=== PATIENT | female | born 1930 | race Caucasian/White ===

== ENCOUNTER 2018-09-02 10:51 | Inpatient (IN) | payer MEDICARE ==
[~2018-09-02] VITALS: Ht 152.4 cm; Wt 72.3 kg
[2018-09-02 13:00] VITALS: BP 92/54
--- NOTE | 2018-09-02 13:28 | Consultation-Hospitalist ---
PAGE RAM DO 09/02/18 1328: HPI History of Present Illness: HPI/Chief Complaint CC: Debility following left knee replacement HPI: This is an 88yoWF clinic patient of Dr Man in [place] who presents to the IR[facility] for rehab following an uncomplicated left total knee replacement. I was managing her in a consulting capacity since admitted at [facility] in [place] on Friday. Bowels are moving well and pain is controlled. Source: patient Exam Limitations: no limitations Date Seen 09/02/18 Attending Physician Victor Manuel Bravo MD PCP Alexx Man MD Referring Physician Date of Admission Sep 02, 2018 at 12:59 Home Medications & Allergies Home Medications Reviewed patient Home Medication Reconciliation performed by pharmacy medication reconciliations optics manufacturing technician and/or nursing. Patients Allergies have been reviewed. Allergies Allergies Coded Allergies Penicillins (Verified Allergy, Intermediate, 09/02/18) Past Hwtvmej-Ehawrv-Hhlmiw Hx Past Med/Social Hx: Reviewed Nursing Past Med/Soc Hx, Reviewed and Corrections made Patient Social History Marrital Status: Employed/Student: retired Alcohol Use: Occasionally Uses Alcohol Beverage of Choice: Wine Smoking Status: Never a Smoker Recent Foreign Travel: No Contact w/other who traveled: No Past Medical History Surgeries: Hysterectomy, Orthopedic, Pacemaker Cardiac: Atrial Fibrillation, High Cholesterol Hysterectomy Musculoskeletal: Arthritis Family History Hypertension Review of Systems Constitutional: malaise, weakness EENTM: no symptoms reported Respiratory: no symptoms reported Cardiovascular: no symptoms reported Gastrointestinal: no symptoms reported Genitourinary: no symptoms reported Musculoskeletal: joint pain Skin: no symptoms reported Psychiatric/Neurological: No Symptoms Reported All Other Systems Reviewed Negative Unless Noted: Yes Physical Exam Physical Exam Vital Signs Vital Signs - First Documented 09/02/18 09/02/18 13:00 15:00 Temp 98.0 Pulse 83 Resp 20 B/P (MAP) 92/54 (67) Pulse Ox 93 O2 Delivery Room Air Capillary Refill : Height, Weight, BMI Height: '" Weight: lbs. oz. kg; BMI Method: General Appearance: No Apparent Distress, WD/WN, Chronically ill Eyes: Bilateral Eye Normal Inspection, Bilateral Eye PERRL HEENT: PERRL/EOMI, Normal ENT Inspection, Pharynx Normal Neck: Full Range of Motion, Normal Inspection, Non Tender, Supple, Carotid Bruit Respiratory: Chest Non Tender, Lungs Clear, Normal Breath Sounds, No Accessory Muscle Use, No Respiratory Distress Cardiovascular: Regular Rate, Rhythm, No Edema, No Gallop, No JVD, No Murmur, Normal Peripheral Pulses Gastrointestinal: Normal Bowel Sounds, No Organomegaly, No Pulsatile Mass, Non Tender, Soft Back: Normal Inspection, No CVA Tenderness, No Vertebral Tenderness Extremity: Normal Capillary Refill, Normal Inspection, Normal Range of Motion ( decreased ROM left leg), Non Tender, No Calf Tenderness, No Pedal Edema Neurologic/Psychiatric: Alert, Oriented x3, No Motor/Sensory Deficits, Normal Mood/Affect Skin: Normal Color, Warm/Dry Lymphatic: No Adenopathy Results Results/Procedures Labs Patient resulted labs reviewed. Assessment/Plan Assessment and Plan Assess & Plan/Chief Complaint Assessment: s/p left total knee replacement POD # 2 Debility following surgery AF OP Hypothyroidism Plan: Home meds Monitor BP Diagnosis/Problems Diagnosis/Problems (1) Total knee replacement status Status: Acute Qualifiers: Laterality: left Qualified Codes: Z96.652 - Presence of left artificial knee joint (2) Debility Status: Acute (3) Hypothyroidism Status: Chronic Qualifiers: Hypothyroidism type: acquired Qualified Codes: E03.9 - Hypothyroidism, unspecified (4) Hypertension Status: Chronic Qualifiers: Hypertension type: essential hypertension Qualified Codes: I10 - Essential (primary) hypertension (5) Osteoporosis Status: Chronic Qualifiers: Osteoporosis type: unspecified Presence of current pathological fracture: unspecified Qualified Codes: M81.0 - Age-related osteoporosis without current pathological fracture OSORIO AMOR MED STUDENT 09/02/18 1547: HPI History of Present Illness: HPI/Chief Complaint CC: Rehab for total knee replacement HPI: The patient is an 88 y/o female show underwent a left total knee replacement on Friday. Surgery was performed by Dr. Funk at [facility]. She is being admitted to [facility] for inpatient rehabilitation. She states that she had been suffering from osteoarthritis of the knees for many years. She has previously had her right knee replaced and the left knee has been hurting for the past 5-6 years. She is currently very sore but her pain is under control. She reports no other symptoms and is eager to proceed with rehabilitation. Source: patient Home Medications & Allergies Home Medications Active Scripts Medications Dose Route/Sig Max Daily Dose Days Date Category Hydrocodone-Acetamin 7.5-325 (Hydrocodone/Acetaminophen) 1 Each Tablet 1-2 Tab PO Q4H PRN 09/02/18 Reported Sertraline HCl 100 Mg Tablet 100 Mg PO HS 09/02/18 Reported Aspirin EC (Aspirin) 81 Mg Tablet.dr 81 Mg PO DAILY PRN 09/02/18 Reported Amlodipine Besylate 10 Mg Tablet 10 Mg PO HS 09/02/18 Reported Vitamin D3 (Cholecalciferol (Vitamin D3)) 1,000 Unit Capsule 1,000 Unit PO DAILY 09/02/18 Reported Vitamin C (Ascorbate Calcium) 500 Mg Tablet 500 Mg PO DAILY 09/02/18 Reported Triamterene-Hctz 37.5-25 mg Cp (Triamterene/Hydrochlorothiazid) 1 Each Capsule 1 Cap PO DAILY 09/02/18 Reported Acid Assistant Store Manager Sales (FAMOTIDINE) (Famotidine) 20 Mg Tablet 20 Mg PO DAILY PRN 09/02/18 Reported Levothyroxine Sodium 50 Mcg Tablet 50 Mcg PO DAILY 09/02/18 Reported Gabapentin 100 Mg Capsule 200 Mg PO BID 09/02/18 Reported Fosamax (Alendronate Sodium) 70 Mg Tablet 70 Mg PO WEEK 09/02/18 Reported Allergies Allergies: Penicillin Past Biailsq-Hfczad-Ajnuef Hx Patient Social History Marrital Status: Employed/Student: retired Alcohol Use: Occasionally Uses Alcohol Beverage of Choice: Wine Recreational Drug Use: No Smoking Status: Never a Smoker Past Medical History Surgeries: Hysterectomy, Orthopedic, Pacemaker Cardiac: Atrial Fibrillation, High Cholesterol Hysterectomy Family History Stroke Review of Systems Constitutional: no symptoms reported EENTM: no symptoms reported Respiratory: no symptoms reported Cardiovascular: no symptoms reported Gastrointestinal: no symptoms reported Genitourinary: no symptoms reported Skin: no symptoms reported Physical Exam Physical Exam General Appearance: No Apparent Distress, WD/WN Neck: Full Range of Motion, Normal Inspection, Non Tender, Supple Respiratory: Chest Non Tender, Lungs Clear, Normal Breath Sounds, No Accessory Muscle Use, No Respiratory Distress Cardiovascular: Regular Rate, Rhythm, No Edema, No Gallop, No JVD, No Murmur Neurologic/Psychiatric: Alert, Oriented x3, No Motor/Sensory Deficits, Normal Mood/Affect Skin: Normal Color, Warm/Dry Lymphatic: No Adenopathy Assessment/Plan Assessment and Plan Assess & Plan/Chief Complaint Assessment: 1) Left total knee replacement Plan: 1) inpatient rehabilitation PAGE RAM DO Sep 02, 2018 13:28 OSORIO AMOR MED STUDENT Sep 02, 2018 15:47
--- NOTE | 2018-09-02 13:37 | Occupational Therapy Eval ---
OT Evaluation-General/PLF Medical Diagnosis Admission Date Sep 02, 2018 at 12:59 Medical Diagnosis: L TKA Onset Date: Aug 31, 2018 Therapy Diagnosis Therapy Diagnosis: decr self care, decr funct mob, decr act bernice, weakness Precautions Precautions/Isolations: Standard Precautions Weight Bear Status Weight Bearing Restriction: Weight Bearing/Tolerated Referral Physician: Lawrence Referral Reason: Evaluation/Treatment Medical History Pertinent Medical History: Arthritis, Neuropathy (Pt reported in feet), OA Additional Medical History R TKA March 2018. Anxiety, depression. Back problems. Claustrophobia. Glaucoma. Gout. Migraine headaches. Pacemaker. Thyroid disorder. Decreased hearing. Sleep disturbances. Hx a fib, bradycardia Current History Elective L TKA Reviewed History: Yes Social History Home: Single Level Current Living Status: Alone Entry Into Home: Stairs With Railing Steps Into Home: 4 ADL-Prior Level of Function Functional [place] Measure 0=Not Assessed/NA 4=Minimal Assistance 1=Total Assistance 5=Supervision or Setup 2=Maximal Assistance 6=Modified [place] 3=Moderate Assistance 7=Complete [place] ADL PLOF Comments Pt reported that she was previously able to manage all of her basic self care needs. She has someone to help her clean her house but is otherwise able to manage cooking, laundry, medications, bills. She still drives and reported shopping wears her out. She is retired Self Care DME/Equipment: Bath Chair, Grab Bars, Shower, Tall Toilet OT Current Status Subjective Pt seen in room, up in recliner, agreeable to OT. Pain reported 6/10 in her knee and she told nursing she had pain meds just before she left the hospital. Appearance Alert, cooperative Mental Status/Objective Patient Orientation: Person, Place, Time, Situation Current Glasses/Contacts: Yes Hearing Aids: No Dentures/Partials: No Hand Dominance: Right Upper Extremity ROM Grossly WFL bilat. Pt reported sometimes arthritis limits her shoulder movement. Upper Extremity Coordination No problems observed Upper Extremity Sensation No problems per pt report Upper Extremity Strength Grossly 4/5 bilat ADL-Treatment ADL-Current Pt reported that she had a shower at the hospital before she left and changed clothing. She had a late lunch and didn't need to toilet at this time. Plan ADLs in the morning. Pt educ to push up from chair with both arms. Transferred CGA and walked CGA, FWW to [facility] for group. Functional [place] Measure 0=Not Assessed/NA 4=Minimal Assistance 1=Total Assistance 5=Supervision or Setup 2=Maximal Assistance 6=Modified [place] 3=Moderate Assistance 7=Complete IndependenceIRFPAI Quality Coding Scale 6 Independent with activity with or without an assistive device 5 Patient requires set up or clean up by helper. Patient completes activity by themselves 4 Supervision or touching assist (CGA). [place] provide cues , steadying assist 3 The helper provides less than half the effort to complete the activity 2 The helper provides more than half the effort to complete the activity 1 Dependent. The helper does all the effort to complete an activity 7 Patient refused to complete or attempt activity 9 The patient did not perform the activity before the current illness or injury 88 Not attempted due to Medical conditions or safety concerns Education OT Patient Education: Purpose of tx/functional activities, Rehab process, Transfer techniques Teaching Recipient: Patient, Family Teaching Methods: Discussion Response to Teaching: Verbalize Understanding, Reinforcement Needed OT Short Term Goals Short Term Goals Time Frame: Sep 09, 2018 Grooming(FIM): 5 Bathing(FIM): 5 Upper Body Dressing(FIM): 5 Lower Body Dressing(FIM): 5 Toileting(FIM): 5 Toilet/Commode Transfer(FIM): 5 Shower Transfer(FIM): 5 Additional Short Term Goals: 1-Demonstrate ADL Tasks, 2-Verbalize Understanding , 3-ImproveStrength/Mandi 1=Demonstrate adherence to instructed precautions during ADL tasks. 2=Patient will verbalize/demonstrate understanding of assistive devices/ modifications for ADL. 3=Patient will improve strength/tolerance for activity to enable patient to perform ADL's. OT Substation Superintendent Goals Senior Living Goals Time Frame: Sep 18, 2018 Eating (FIM): 7 Eating (QC): 7 Groomin Oral Hygiene (QC): 6 Bathing(FIM): 6 Shower/Bathe Self (QC): 6 Upper Body Dressing(FIM): 6 Upper Body Dressing (QC): 6 Lower Body Dressing(FIM): 6 Lower Body Dressing (QC): 6 On/Off Footwear (QC): 6 Toileting(FIM): 6 Toileting Hygiene (QC): 6 Toilet/Commode Transfer(FIM): 6 Toilet/Commode Transfer (QC): 6 Shower Transfer(FIM): 6 Additional Goals: 1-Demonstrate ADL Tasks, 2-Verbalize Understanding, 3- ImproveStrength/Mandi 1=Demonstrate adherence to instructed precautions during ADL tasks. 2=Patient will verbalize/demonstrate understanding of assistive devices/ modifications for ADL. 3=Patient will improve strength/tolerance for activity to enable patient to perform ADL's. OT Education/Plan Problem List/Assessment Assessment: Decreased Activ Tolerance, Decreased UE Strength, Dependent Transfers, Impaired Self-Care Skills Pt would benefit from skilled OT to increase her independence to allow her to safely return home to live alone after L TKA Discharge Recommendations Plan/Recommendations: Continue POC Treatment Plan/Plan of Care Treatment,Training & Education: Yes Patient would benefit from OT for education, treatment and training to promote independence in ADL's, mobility, safety and/or upper extremity function for ADL' s. Plan of Care: ADL Retraining, Functional Mobility, Group Exercise/Act as Ind ( education, exercise, functional mobility, activity tolerance, socialization), UE Neuromus Re-Ed/Coord Treatment Duration: Sep 18, 2018 Frequency: At least 5 of 7 days/Wk (IRF) Estimated Hrs Per Day: 1.5 hours per day Agreement: Yes Rehab Potential: Good Time/GCodes Start Time: 13:10 Stop Time: 13:30 Total Time Billed (hr/min): 20 Billed Treatment Time visit, 20 minutes evaluation moderate intensity TREVON TRUJILLO OT Sep 02, 2018 13:37
--- NOTE | 2018-09-02 14:15 | Physical Therapy Evaluation ---
PT Evaluation-General Medical Diagnosis Admission Date Sep 02, 2018 at 12:59 Medical Diagnosis: L TKA Onset Date: Aug 31, 2018 Therapy Diagnosis Therapy Diagnosis: weakness; abn gait Precautions Precautions/Isolations: Standard Precautions Weight Bear Status Right Lower Extremity: Right Full Weight Bearing Left Lower Extremity: Left Weight Bearing/Tolerated Referral Physician: Lawrence Reason for Referral: Evaluation/Treatment Medical History Pertinent Medical History: Atrial Fib, HTN, OA Additional Medical History R TKA approx 4 months ago Current History Pt recently had a left TKR; transferred to ARU for continued aggressive skilled therapy services. Reviewed History: Yes Social History Current Living Status: Alone Entry Into Home: Stairs With Railing PT Steps Into Home: 3 Prior/Core FIM Prior Level of Function Functional [place] Measure 0=Not Assessed/NA 4=Minimal Assistance 1=Total Assistance 5=Supervision or Setup 2=Maximal Assistance 6=Modified [place] 3=Moderate Assistance 7=Complete IndependenceIRFPAI Quality Coding Scale 6 Independent with activity with or without an assistive device 5 Patient requires set up or clean up by helper. Patient completes activity by themselves 4 Supervision or touching assist (CGA). [place] provide cues , steadying assist 3 The helper provides less than half the effort to complete the activity 2 The helper provides more than half the effort to complete the activity 1 Dependent. The helper does all the effort to complete an activity 7 Patient refused to complete or attempt activity 9 The patient did not perform the activity before the current illness or injury 88 Not attempted due to Medical conditions or safety concerns Bed Mobility: 7 Transfers (B,C,W/C) (FIM): 7 Gait: 6 (using a cane post right TKA) Stairs: 6 Prior Equipment Used: FWW and cane Community ambulator; indep with all mobility. PT Evaluation-Current Subjective Agreeable to PT. Objective Patient Orientation: Person, Place, Time, Situation Problem Solving: Good ROM/Strength ROM Lower Extremities RightLE WFL; left WFL except left knee impaired: 0-85 degrees Strenght Lower Extremities R LE WFL; left LE grossly 4/5 throughout Integumentary/Posture Integumentary Refer to nursing notes Bowel Incontinence: No Bladder Incontinence: No Posture normal and symmetrical Neuromuscular (Tone, Coordination, Reflexes) functional and intact Sensory Vision: Functional Hearing: Functional Hand Dominance: Right Sensation Right Lower Extremit: Intact Sensation Left Lower Extremity: Intact Transfers Functional [place] Measure 0=Not Assessed/NA 4=Minimal Assistance 1=Total Assistance 5=Supervision or Setup 2=Maximal Assistance 6=Modified [place] 3=Moderate Assistance 7=Complete IndependenceIRFPAI Quality Coding Scale 6 Independent with activity with or without an assistive device 5 Patient requires set up or clean up by helper. Patient completes activity by themselves 4 Supervision or touching assist (CGA). [place] provide cues , steadying assist 3 The helper provides less than half the effort to complete the activity 2 The helper provides more than half the effort to complete the activity 1 Dependent. The helper does all the effort to complete an activity 7 Patient refused to complete or attempt activity 9 The patient did not perform the activity before the current illness or injury 88 Not attempted due to Medical conditions or safety concerns Sit to/from Stand: 4 (min assist with cues for sequencing and safety. ) Gait Does the Patient Walk?: Yes Mode of Locomotion: Walk Gait (FIM): 2 Distance (FIM): 9=907-41 ft Walk 10 feet (QC): 4 Walk 50 ft with 2 Turns(QC): 4 Walk 150 ft (QC): 88 Distance: 50 ft Gait Level of Assist: 4 (CGA for safety) Gait Assistive Device: FWW Comments/Gait Description slightly antalgic gait and left knee appears to be a bit stiff. Wheelchair Training Does the Pt Use a Wheelchair?: No Balance Sitting Static: Good Sitting Dynamic: Good Standing Static: Fair Standing Dynamic: Fair Picking up an Object (QC): 88 Treatment PT eval only Assessment/Needs Pt presents post left TKR with decreased functional transfers and gait as well as decreased ROM and strength. She will benefit from skilled PT intervention to address functional mobility and safety to allow her to return home as before. Rehab Potential: Good PT Short Term Goals Short Term Goals Time Frame: Sep 07, 2018 Transfers (B,C,W/C) (FIM): 5 Gait (FIM): 5 PT Coil Winder Strap Goals Fci Goals PT Fci Goals Time Frame: Sep 16, 2018 Transfers (B,C,W/C) (FIM): 7 Sit to Lying (QC): 6 Lying-Sitting on Side/Bed(QC): 6 Sit to Stand (QC): 6 Roll Left to Right (QC): 6 Chair/Lhu-vx-Dzpis Xfer(QC): 6 Car Transfer (QC): 6 Does the Patient Walk: Yes Gait (FIM): 6 Gait distance (FIM): 3=150 ft Walk 10 feet (QC): 6 Walk 10ft-Uneven Surface(QC): 6 Walk 50ft with 2 Turns (QC): 6 Walk 150 ft (QC): 6 Gait Assistive Device: FWW Does the Pt use WC or Scooter?: No Stairs (FIM): 5 # of Steps: 8 (household level) 1 Step (curb) (QC): 6 4 Steps (QC): 6 12 Steps (QC): 88 Picking up an Object (QC): 4 Goal is for patient to discharge home at a mod indep level and care for herself. PT Plan Problem List Problem List: Activity Tolerance, Functional Strength, Safety, Balance, Gait, Transfer, Bed Mobility Treatment/Plan Treatment Plan: Continue Plan of Care Treatment Plan: Bed Mobility, Education, Functional Activity Mandi, Functional Strength, Group Therapy, Gait, Safety, Therapeutic Exercise, Transfers Treatment Duration: Sep 16, 2018 Frequency: At least 5 of 7 days/Wk (IRF) Estimated Hrs Per Day: 1.5 hours per day Patient and/or Family Agrees t: Yes Safety Risks/Education Patient Education: Transfer Techniques, Safety Issues Teaching Recipient: Patient Teaching Methods: Discussion Response to Teaching: Reinforcement Needed Time/GCodes Time In: 1300 Time Out: 1310 Total Billed Treatment Time: 10 Total Billed Treatment visit JOY ROQUE PT Sep 02, 2018 14:15
[2018-09-02] MEDS ORDERED: FAMOTIDINE 20 MG (PEPCID) TABLET PO PRN (14:45)
--- NOTE | 2018-09-02 14:49 | Therapy Group Daily Note ---
Therapy Daily Group Note Patient Education Topic Other List Below (Memory) Exercises LE Seated Exercise, UE Exercise Other/Notes Pt ambulated to OT/PT group. Group consisted of introductions (name, place living, favorite snowtime memory), socialization, UE/LE seated exercises, memory education, memory strategies/activity and ARU description/expectations. Pt was able to introduce self and place living, unable to say snowtime memory. Pt actively listened to peers during introduction. Pt was able to complete UE/ LE seated exercises. Pt contributed to discussions and educational topics. Verbalized understanding of memory and ARU topics. Pt able to complete memory activity with little difficulty. After group, PT took over care. All needs met in room. Start Time: 13:30 Stop Time: 14:10 Total Billed Treatment Time: 40 Total Billed Treatment 1-GRP JOY KAY Sep 02, 2018 14:49
--- NOTE | 2018-09-02 15:10 | Physical Therapy Daily Note ---
PT Daily Note-Current Subjective Pt. agreeable to Rx. States she had a recent successful R RKR and now is also os pleased with her left TKR. Has no pain . Pain Numeric Pain Scale: 0-No Pain Mental Status Patient Orientation: Normal For Age Transfers Functional [place] Measure 0=Not Assessed/NA 4=Minimal Assistance 1=Total Assistance 5=Supervision or Setup 2=Maximal Assistance 6=Modified [place] 3=Moderate Assistance 7=Complete IndependenceIRFPAI Quality Coding Scale 6 Independent with activity with or without an assistive device 5 Patient requires set up or clean up by helper. Patient completes activity by themselves 4 Supervision or touching assist (CGA). [place] provide cues , steadying assist 3 The helper provides less than half the effort to complete the activity 2 The helper provides more than half the effort to complete the activity 1 Dependent. The helper does all the effort to complete an activity 7 Patient refused to complete or attempt activity 9 The patient did not perform the activity before the current illness or injury 88 Not attempted due to Medical conditions or safety concerns Transfers (B, C, W/C) (FIM): 6 Scootin Rollin Roll Left to Right (QC): 5 Supine to/from Sit: 6 Sit to/from Stand: 6 Sit to Lying (QC): 5 Sit to Stand (QC): 5 Chair/Emq-ng-Skibv Xfer(QC): 5 Bed to/from Chair: 6 Car Transfer (QC): 5 car TRF required patient to move hips over as far as possible to get left leg in but she did it indep Weight Bearing Right Lower Extremity: Right Full Weight Bearing Left Lower Extremity: Left Weight Bearing/Tolerated Gait Training Does the Patient Walk?: Yes Gait (FIM): 5 Distance (FIM): 3=150 ft (200x2) Walk 10 feet (QC): 4 Walk 50 ft with 2 Turns(QC): 4 Walk 150 ft (QC): 4 Walking 10ft/uneven surface-QC: 4 Gait Level of Assist: 5 Gait Persons Needed: 1 Gait Assistive Device: FWW pt. has good heel strike, even step length and good alignment Wheelchair Training Does the Pt Use a Wheelchair?: No Stair Training Stair Training: Handrails/: 2 handrails Stairs (FIM): 2 #of Steps: 4 1 Step (curb) (QC): 2 4 Steps (QC): 2 Stairs: Pattern: Step to Level of Assist: 4 required instruction for sequence and was surprised that she can now lead with what had recently been her involved knee Balance Special Test Comments unsafe to trial picking up object from floor Exercises Supine Ex: Ankle pumps, Quad Set, Rolling, Glut sets, Heel Slides, Short Arc Quads, Scooting, Straight leg raise, Hip abd/add Supine Reps: 20 Seated Therapy Exercises: Ankle pumps, Sit to stand, Long arc quads, Hip flexion Seated Reps: 15 Treatments toileted indep /SBA Assessment Current Status: Good Progress PT Short Term Goals Short Term Goals Time Frame: Sep 07, 2018 Transfers (B,C,W/C) (FIM): 5 Gait (FIM): 5 PT Dispatcher Maintenance Service Goals Dispatcher Maintenance Service Goals PT Dispatcher Maintenance Service Goals Time Frame: Sep 16, 2018 Transfers (B,C,W/C) (FIM): 7 Sit to Lying (QC): 6 Lying-Sitting on Side/Bed(QC): 6 Sit to Stand (QC): 6 Roll Left to Right (QC): 6 Chair/Wsy-br-Gglza Xfer(QC): 6 Car Transfer (QC): 6 Does the Patient Walk: Yes Gait (FIM): 6 Gait distance (FIM): 3=150 ft Walk 10 feet (QC): 6 Walk 10ft-Uneven Surface(QC): 6 Walk 50ft with 2 Turns (QC): 6 Walk 150 ft (QC): 6 Gait Assistive Device: FWW Does the Pt use WC or Scooter?: No Stairs (FIM): 5 # of Steps: 8 (household level) 1 Step (curb) (QC): 6 4 Steps (QC): 6 12 Steps (QC): 88 Picking up an Object (QC): 4 PT Plan Treatment/Plan Treatment Plan: Continue Plan of Care Treatment Plan: Bed Mobility, Education, Functional Activity Mandi, Functional Strength, Group Therapy, Gait, Safety, Therapeutic Exercise, Transfers Treatment Duration: Sep 16, 2018 Frequency: At least 5 of 7 days/Wk (IRF) Estimated Hrs Per Day: 1.5 hours per day Patient and/or Family Agrees t: Yes Safety Risks/Education Patient Education: Gait Training, Transfer Techniques, Steps, Correct Positioning, Safety Issues Teaching Recipient: Patient Teaching Methods: Demonstration, Discussion Response to Teaching: Verbalize Understanding, Return Demonstration, Reinforcement Needed Time/GCodes Time In: 1410 Time Out: 1500 Total Billed Treatment Time: 50 Total Billed Treatment 1,EX30m,GT20m G Codes Necessary: BILL Garcia SUPERVISOR BLASTING Sep 02, 2018 15:10
--- NOTE | 2018-09-02 15:35 | ST Cognitive Linguistic Eval ---
Speech Evaluation-General Medical Diagnosis L TKA Onset Date: Aug 31, 2018 Therapy Diagnosis Therapy Diagnosis: ? Cognition Precautions Precautions: Fall Precautions/Isolations: Standard Precautions Medical History Pertinent Medical History: Arthritis, Neuropathy (Pt reported in feet), OA Reviewed History: Yes Social History Current Living Status: Alone Speech PLF-Current Status Prior Level of Function Patient lived home independently. Subjective Patient pleasant and cooperative. Language Eval: Auditory Comprehends Simple Yes/No Ques: Functional Follows 1-Step Commands: Functional Follows Complex Directions: Functional Follows General Conversations: Functional Language Eval: Verbal Language Completes Spontaneous Greeting: Functional Produces Auto, Serial Info: Functional Word Finding: Functional Requests Basic Needs: Functional States Basic Personal Info: Functional Expresses Complex Ideas: Functional Language Evaluation: Reading DNT Cognitive Patient Orientation Patient alert and oriented x3. Objective Cognitive Domain Attention: WNL Memory: WNL Problem Solving: Functional Objective Formal/Standardized Tests [facility] Cognitive/Communication Screen Results [facility] Cognitive/Communication Assessment was administered to determine cognitive linguistic functioning. Results are as follows: Memory: 3 word recall was 3/3 for immediate: 2/3 for delayed and 3/3 for remote delay Organization/Sequencin/4 Problem Solving: Comparisons:3/ Auditory Comprehension: 10 Speech/Language: Within functional limits Oral Motor/Speech Production Within functional limits Impression Functional Cognitive Linguistic Skills Communication/Social Cognition Comprehension: 7 Expression: 7 Social Interaction: 7 Problem Solvin Memory: 6 Speech Patient Assess Expression of Ideas/Wants: Expression (4) Understanding Verbal Content: Understands (4) Brief Interview-Mental Status: Yes Repetition of Three Words: Three (3) Temporal Orientation: Year: Correct (3) Temporal Orientation: Month: Accurate within 5 days(2) Temporal Orientation: Day: Correct (1) Recall : Wear to say "Sock": Yes, no cue required (2) Recall : Color: Yes, no cue required (2) Recall : Bed: Yes, no cue required (2) Speech Short Term Goals Short Term Goals Short Term Goals No goals established. This patient does not require skilled ST at this time. Speech Nursing Home Goals Forester Silviculture Goals No goals established. This patient does not require skilled ST at this time. Speech-Plan Patient/Family Goals Patient/Family Goals: Patient plans to return home. Treatment Plan Speech Therapy Treatment Plan: Discontinue ST No goals established. This patient does not require skilled ST at this time. Frequency: Modified Program (IRF) (0) Estimated Hrs Per Day: Other (0) Rehab Potential: Good Barriers to Learning: None identified Pt/Family Agrees to Plan: Yes Safety Risks/Education Teaching Recipient: Patient Teaching Methods: Discussion Response to Teaching: Verbalize Understanding Time Speech Therapy Time In: 15:00 Speech Therapy Time Out: 15:15 Total Billed Time: 15 Billed Treatment Time 1, SPSNDCOMP ENOC Sears Sep 02, 2018 15:35
[2018-09-02] MEDS ORDERED: AMLO10TA6 PO (15:37)
[2018-09-02] MEDS ORDERED: HYDR-3816 PO (15:37)
[2018-09-02] MEDS ORDERED: FAMO20TA3 PO (15:37)
[2018-09-02] MEDS ORDERED: LEVO50TA6 PO (15:37)
[2018-09-02] MEDS ORDERED: ALEN70TA2 PO (15:37)
[2018-09-02] MEDS ORDERED: ASPI-983 PO (15:37)
[2018-09-02] MEDS ORDERED: GABA-486 PO (15:37)
[2018-09-02] MEDS ORDERED: CHOL10007 PO (15:37)
[2018-09-02] MEDS ORDERED: SERT100T8 PO (15:37)
[2018-09-02] MEDS ORDERED: TRIA1CAP4 PO (15:37)
[2018-09-02] MEDS ORDERED: ASCO-262 PO (15:37)
--- NOTE | 2018-09-02 16:08 | PM&R Post Admission Assessment ---
Post Admission Physician Asses Date seen by provider: Sep 02, 2018 Time seen by provider: 16:00 The preadmission screen agrees with the post admission assessment that the patient is a good candidate for inpatient rehabilitation. The patient will have a comprehensive program of inpatient rehabilitation with a goal of maximizing level of functional independence prior to discharge home with family and HHC. The patient will have PT/OT ninety minutes per day, each discipline, five days a week for 10-14 days for gait, strengthening, conditioning, balance, ADLs, any patient/family/caregiver training as necessary. Speech therapy to do cognitive assessment and treat as indicated. Rehabilitation nursing to assist with bowel, bladder, skin, wound care, medication administration, pain management. Data Systems Analyst to assist with discharge planning, community reentry. SCD's for DVT prophylaxis. She appears to be well motivated to participate in three hours of therapy a day. She should be able to tolerate three hours of therapy a day from a medical and surgical standpoint. She should benefit from the three hours of therapy a day. She has a reasonable discharge plan, reasonable discharge rehabilitation goals and a supportive family. She has various comorbidities that need to be closely monitored with medications and treatments adjusted on a daily basis as needed. These include: HTN s/p pacemaker Barriers to discharge for this patient who had been Modified independent prior to this are for her to be modified independent to supervision for ADLs and mobility skills prior to discharge home with family and HHC, so as to lessen the burden of the caregivers. Risks for this patient include: 1. Fall 2. Fracture 3. DVT 4. Pulmonary embolism 5. Wound infection 6. Skin breakdown 7. Contractures 8. Poorly controlled pain 9. Urinary retention 10. UTI 11. Respiratory infection 12. Aspiration 13.Poorly controlled HTN Estimated Length of Stay: 7-10 days Prognosis: Rehab prognosis appears good for goal of discharge home with family and HHC modified independent to supervision for ADLs and mobility skills. Date Identified: Sep 02, 2018 Time Identified: 16:00 Action Plan to Resolve CSMI: Transfer meds from OSH reviewed General: Alert, Oriented X3, Cooperative, No Acute Distress HEENT: Atraumatic, PERRLA, EOMI, Mucous Memb Moist/[place] Neck: Supple, No JVD Lungs: Clear to Auscultation Heart: Regular Rate Abdomen: Normal Bowel Sounds, Soft, No Tenderness Extremities: Other (trace edema left ankle) Skin: Other (Incision site left knee cleaN AND intact no drainage RT Knee old surgical scar) Neuro: Sensation Intact, Other (Strength 4/5 except left knee with ROM 0- 85degrees) Psych/Mental Status: Mental Status NL ARMOS MANDUJANO MD Sep 02, 2018 16:08
--- NOTE | 2018-09-02 16:19 | Occupational Ther Daily Note ---
OT Current Status-Daily Note Subjective Pt seen in room, up in recliner, agreeable to OT. No pain mentioned. Appearance Alert, cooperative Mental Status/Objective Functional [place] Measure 0=Not Assessed/NA 4=Minimal Assistance 1=Total Assistance 5=Supervision or Setup 2=Maximal Assistance 6=Modified [place] 3=Moderate Assistance 7=Complete [place] ADL-Treatment Pt reported that when she toileted earlier, she had trouble getting off the toilet, although she could do it. It is not as tall as hers at home and the grab bar wasn't on both sides. OT set up BSC over toilet for pt. She walked to bathroom SBA, FWW and sat down on BSC without reaching backwards and "plopped" on toilet, needing CGA. Pt educ to reach back for arms before sitting down. Able to manage clothing and hygiene SBA, FWW. Able to stand at sink to groom SBA. Returned to recliner and skilled cues provided for walker placement and to reach hands back. Continued orientation to rehab process and schedule. Will plan shower and dressing in AM. Pt reported she has had no difficulty opening food packages, cutting up food, feeding herself, getting a drink. Pt left up in recliner, all needs met. Functional [place] Measure 0=Not Assessed/NA 4=Minimal Assistance 1=Total Assistance 5=Supervision or Setup 2=Maximal Assistance 6=Modified [place] 3=Moderate Assistance 7=Complete IndependenceIRFPAI Quality Coding Scale 6 Independent with activity with or without an assistive device 5 Patient requires set up or clean up by helper. Patient completes activity by themselves 4 Supervision or touching assist (CGA). [place] provide cues , steadying assist 3 The helper provides less than half the effort to complete the activity 2 The helper provides more than half the effort to complete the activity 1 Dependent. The helper does all the effort to complete an activity 7 Patient refused to complete or attempt activity 9 The patient did not perform the activity before the current illness or injury 88 Not attempted due to Medical conditions or safety concerns Eating (FIM): 7 (Opens packages, cuts up food, feeds herself. No dentures) Eating (QC): 6 Grooming (FIM): 5 (SBA at sink to wash and dry hands) Education OT Patient Education: Modified ADL techniques, Progress toward Goal/Update tx plan, Safety issues, Transfer techniques, Use of adapted equipment Teaching Recipient: Patient Teaching Methods: Discussion Response to Teaching: Verbalize Understanding, Return Demonstration, Reinforcement Needed OT Short Term Goals Short Term Goals Time Frame: Sep 09, 2018 Grooming(FIM): 5 Bathing(FIM): 5 Upper Body Dressing(FIM): 5 Lower Body Dressing(FIM): 5 Toileting(FIM): 5 Transfers (B,C,W/C) (FIM): 5 Toilet/Commode Transfer(FIM): 5 Shower Transfer(FIM): 5 Additional Short Term Goals: 1-Demonstrate ADL Tasks, 2-Verbalize Understanding , 3-ImproveStrength/Mandi 1=Demonstrate adherence to instructed precautions during ADL tasks. 2=Patient will verbalize/demonstrate understanding of assistive devices/ modifications for ADL. 3=Patient will improve strength/tolerance for activity to enable patient to perform ADL's. OT Nursing Home Goals Yoga Teacher Goals Time Frame: Sep 18, 2018 Eating (FIM): 7 Eating (QC): 7 Groomin Oral Hygiene (QC): 6 Bathing(FIM): 6 Shower/Bathe Self (QC): 6 Upper Body Dressing(FIM): 6 Upper Body Dressing (QC): 6 Lower Body Dressing(FIM): 6 Lower Body Dressing (QC): 6 On/Off Footwear (QC): 6 Toileting(FIM): 6 Toileting Hygiene (QC): 6 Toilet/Commode Transfer(FIM): 6 Toilet/Commode Transfer (QC): 6 Shower Transfer(FIM): 6 Additional Goals: 1-Demonstrate ADL Tasks, 2-Verbalize Understanding, 3- ImproveStrength/Mandi 1=Demonstrate adherence to instructed precautions during ADL tasks. 2=Patient will verbalize/demonstrate understanding of assistive devices/ modifications for ADL. 3=Patient will improve strength/tolerance for activity to enable patient to perform ADL's. OT Education/Plan Problem List/Assessment Pt would benefit from skilled OT to increase her independence to allow her to safely return home to live alone after L TKA Discharge Recommendations Plan/Recommendations: Continue POC Treatment Plan/Plan of Care Patient would benefit from OT for education, treatment and training to promote independence in ADL's, mobility, safety and/or upper extremity function for ADL' s. Plan of Care: ADL Retraining, Functional Mobility, Group Exercise/Act as Ind ( education, exercise, functional mobility, activity tolerance, socialization), UE Neuromus Re-Ed/Coord Treatment Duration: Sep 18, 2018 Frequency: At least 5 of 7 days/Wk (IRF) Estimated Hrs Per Day: 1.5 hours per day Agreement: Yes Rehab Potential: Good Time/GCodes Start Time: 15:15 Stop Time: 16:06 Total Time Billed (hr/min): 51 Billed Treatment Time visit, 51 minutes ADL TREVON TRUJILLO OT Sep 02, 2018 16:19
--- NOTE | 2018-09-02 16:37 | HISTORY AND PHYSICAL ---
DATE OF SERVICE: 09/02/2018 ADMISSION HISTORY AND PHYSICAL CHIEF COMPLAINT: Difficulty with walking. HISTORY OF PRESENT ILLNESS: The patient is an 88-year-old female with osteoarthritis of the knees who was admitted to an outside facility for right total knee replacement for painful OA refractory conservative care. She had been modified independent with a walker prior to this and living alone in [place], [place]. She has supportive family nearby. Currently, she is min assist for transfers and gait,but has limited active range of motion of the left knee. She is on CPM and utilizing hydrocodone for pain. She was referred to inpatient rehabilitation unit for ongoing care and therapies.She is Modified Independent for eating and Set up for Grooming She is min assist for Upper body dressing and mod assist for Lower body dressing and toileting. PAST MEDICAL HISTORY: Osteoarthritis, hypertension, anxiety, claustrophobia, depression, glaucoma, gout, migraine headaches, thyroid disorder. PAST SURGICAL HISTORY: Pacemaker, right total knee replacement. ALLERGIES: PENICILLIN. FAMILY HISTORY: Heart disease, thyroid disease, hypertension, stroke. SOCIAL HISTORY: No tobacco, occasional alcoholic beverage. She is retired. She is a . She lives in a single story home. REVIEW OF SYSTEMS: A 10-point review of systems significant for knee pain. MEDICATIONS: Fosamax 70 mg p.o. q. week, gabapentin 200 mg p.o. b.i.d., levothyroxine 50 mcg p.o. daily, Pepcid AC 20 mg p.o. daily p.r.n. indigestion, triamterene/hydrochlorothiazide 37.5/25 one tablet p.o. daily, vitamin C 500 mg p.o. daily, vitamin D3 1000 units p.o. daily, amlodipine 10 mg p.o. at bedtime, ASA 81 mg p.o. daily, Zoloft 100 mg p.o. at bedtime, tramadol 50 mg p.o. q.6 hours as needed for moderate pain, [place] 5/325 one to two tablets p.o. q.4 hours p.r.n. severe pain and meloxicam 7.5 mg p.o. b.i.d. PHYSICAL EXAMINATION: GENERAL: Significant for a pleasant female appearing her stated age, alert and oriented, sitting up in chair, in no acute distress. VITAL SIGNS: Within normal limits. She is afebrile. HEENT: Vision, speech, hearing is functional. No oral lesion is noted. NECK: Supple without mass. HEART: Regular rhythm. CHEST: Clear. ABDOMEN: Soft, nontender, bowel sounds present. EXTREMITIES: Trace edema, left ankle incision site, left knee is clean, dry, intact, healing well. She has a well healed surgical scar from right total knee replacement. MUSCULOSKELETAL: She has functional active range of motion in all 4 limbs other than the left knee. NEUROLOGIC: Sensation is grossly intact to touch. Cognition grossly intact. Range of motion of the left knee is 0 to 85 degrees. Strength in both upper limbs is 4/5. She has functional strength, right lower limb, Left lower limb is 4/5. IMPRESSION: 1. Ambulatory dysfunction secondary to osteoarthritis left knee, status post left total knee replacement by Dr. Shaw, [facility] on 08/31/2018. 2. Osteoarthritis, status post right total knee replacement, remote. 3. Hypertension, controlled with medication. 4. Hypothyroidism, on replacement. 5. Status post pacemaker. 6.DVT Prophylaxis Lovenox subcut ordered PLAN: The patient will have a comprehensive program of inpatient rehabilitation with goal of maximizing level of functional dependence prior to discharge home with family and home health care. The patient will have PT, OT 90 minutes per day each discipline, 5 days a week for 10 days with the above goals in mind. Continue with CPM. Please see post-admission physician evaluation for details of plan of care. Speech therapy to do cognitive assessment and treat as indicated. Rehabilitation nursing assist with bowel, bladder, skin, wound care, medication administration, pain management, CPM administration. youth services librarian to assist with discharge planning, community reentry. Follow with Dr. Trever jurado as per her schedule in lieu of PCP. Follow up with Dr. Valeria jurado SCDs and Lovenox subcut for DVT prophylaxis. ESTIMATED LENGTH OF STAY: 7 to 10 days. PROGNOSIS: Rehab prognosis appears good for goal of discharging home with family and home health care, modified independent to supervision of ADLs and mobility skills. DIET: Regular. CODE STATUS: Full code. Job ID: [id number] DocumentID: [id number] Dictated Date: 09/02/2018 16:01:24 Tar Boiler Date: 09/02/2018 16:36:38 Dictated By: RAMOS MANDUJANO MD [facility]
[2018-09-02] MEDS: HYDROcodone/APAP 5 MG/325 MG (LORTAB) TAB PO PRN ×2 (16:46→20:25)
[2018-09-02 18:36] VITALS: BP 149/84
[2018-09-02] MEDS: MELOXICAM 7.5 MG (MOBIC) TABLET PO SCH (20:24)
[2018-09-02] MEDS: GABAPENTIN 100 MG (NEURONTIN) CAP PO SCH (20:24)
[2018-09-02] MEDS: SERTRALINE 100 MG (ZOLOFT) TAB PO SCH (20:24)
[2018-09-02] MEDS: amLODIPine 10 MG (NORVASC) TAB PO SCH (20:24)
[2018-09-03] MEDS: HYDROcodone/APAP 5 MG/325 MG (LORTAB) TAB PO PRN ×3 (04:21→20:54)
[2018-09-03] MEDS: LEVOTHYROXINE 50 MCG (LEVOTHROID) TAB PO SCH (04:21)
[2018-09-03 05:09] VITALS: BP 122/71
[2018-09-03 05:51] LABS: BASOPHILS % (AUTO) 0 % (0-10); EOSINOPHILS # (AUTO) 0.5 10^3/uL (0.0-0.3); EOSINOPHILS % (AUTO) 6 % (0-10); HEMATOCRIT 31 % (35-52); LYMPHOCYTES % (AUTO) 25 % (12-44); MEAN CORPUSCULAR HEMOGLOBIN 30 PG (25-34); MEAN CORPUSCULAR HGB CONC 32 G/DL (32-36); MEAN CORPUSCULAR VOLUME 91 FL (80-99); MEAN PLATELET VOLUME 10.2 FL (7.4-10.4); MONOCYTES # (AUTO) 0.7 X 10^3 (0.0-1.0); MONOCYTES % (AUTO) 8 % (0-12); NEUTROPHILS # (AUTO) 4.9 X 10^3 (1.8-7.8); NEUTROPHILS % (AUTO) 61 % (42-75); PLATELET COUNT 221 10^3/uL (130-400); RED BLOOD COUNT 3.38 10^6/uL (4.35-5.85); RED CELL DISTRIBUTION WIDTH 16.3 % (10.0-14.5); WHITE BLOOD COUNT 8.1 10^3/uL (4.3-11.0)
[2018-09-03 06:58] LABS: ALANINE AMINOTRANSFERASE 11 U/L (0-55); ALBUMIN 3.3 GM/DL (3.2-4.5); ALKALINE PHOSPHATASE 54 U/L (40-136); BILIRUBIN,TOTAL 0.6 MG/DL (0.1-1.0); BUN/CREATININE RATIO 29; CALCIUM 8.6 MG/DL (8.5-10.1); CARBON DIOXIDE 22 MMOL/L (21-32); CHLORIDE 110 MMOL/L (98-107); CREATININE SERUM 0.77 MG/DL (0.60-1.30); GFR ESTIMATED > 60; GLUCOSE 87 MG/DL (70-105); POTASSIUM 3.9 MMOL/L (3.6-5.0); SODIUM 140 MMOL/L (135-145); TOTAL PROTEIN 5.6 GM/DL (6.4-8.2)
--- NOTE | 2018-09-03 07:55 | PM & R (SOAP) Progress Note ---
Subjective This was a face to face visit with the patient. Date Seen by Provider: Sep 03, 2018 Time Seen by Provider: 07:30 Subjective/Events-last exam Patient was seen in her room this AM Adjusting well to unit Therapy notes reviewed.She is Min assist for transfers Date Identified: Sep 03, 2018 Time Identified: 07:30 Medication Intervention: Lovenox Subcut ordered for dvt prophylaxis Review of Systems Musculoskeletal: leg pain Objective Physician Exam Last Set of Vital Signs Vital Signs Date Time Temp Pulse Resp B/P (MAP) Pulse Ox O2 Delivery O2 Flow Rate FiO2 09/03/18 05:09 97.7 66 18 122/71 (88) 98 Room Air Capillary Refill : Less Than 3 Seconds I&O Intake and Output 09/03/18 00:00 Intake Total 360 ml Balance 360 ml Intake Oral 360 ml # Voids 2 Daily Weight Change No General: Alert, Oriented X3, Cooperative, No Acute Distress HEENT: Atraumatic, PERRLA, EOMI, Mucous Memb Moist/[place] Neck: Supple, No JVD Lungs: Clear to Auscultation Heart: Regular Rate Abdomen: Normal Bowel Sounds, Soft, No Tenderness Extremities: Other (trace edema left ankle) Skin: Other (Incision site left knee cleaN AND intact no drainage RT Knee old surgical scar) Neuro: Sensation Intact, Other (Strength 4/5 except left knee with ROM 0- 85degrees) Psych/Mental Status: Mental Status NL Results Lab Data Laboratory Tests 09/03/18 05:16: White Blood Count 8.1, Red Blood Count 3.38L, Hemoglobin 10.0L, Hematocrit 31L, Mean Corpuscular Volume 91, Mean Corpuscular Hemoglobin 30, Mean Corpuscular Hemoglobin Concent 32, Red Cell Distribution Width 16.3H, Platelet Count 221, Mean Platelet Volume 10.2, Neutrophils (%) (Auto) 61, Lymphocytes (%) (Auto) 25 , Monocytes (%) (Auto) 8, Eosinophils (%) (Auto) 6, Basophils (%) (Auto) 0, Neutrophils # (Auto) 4.9, Lymphocytes # (Auto) 2.0, Monocytes # (Auto) 0.7, Eosinophils # (Auto) 0.5H, Basophils # (Auto) 0.0, Sodium Level 140, Potassium Level 3.9, Chloride Level 110H, Carbon Dioxide Level 22, Anion Gap 8, Blood Urea Nitrogen 22H, Creatinine 0.77, Estimat Glomerular Filtration Rate > 60, BUN /Creatinine Ratio 29, Glucose Level 87, Calcium Level 8.6, Corrected Calcium 9.2 , Total Bilirubin 0.6, Aspartate Amino Transf (AST/SGOT) 15, Alanine Aminotransferase (ALT/SGPT) 11, Alkaline Phosphatase 54, Total Protein 5.6L, Albumin 3.3 Assessment/Plan Assessment and Plan OA left knee s/p Left TKR DR Shaw WBAT OA s/p RT TKR remote HTN controlled with med Hypothyroidism on replacement S/P pacemaker DVT prophylaxis Lovenox subcut ordered Plan Continue Pt/OT/CPM Team Conference next week Goal return home with Family and HHC Modified Independent for adls and mobility skills Co-Morbidities that are continuing to impact the rehab process: (include details ) RAMOS MANDUJANO MD Sep 03, 2018 07:55
[2018-09-03] MEDS ORDERED: ENOXAPARIN 30 MG/0.3 ML (LOVENOX) SYR SC SCH (08:00)
[2018-09-03] MEDS: ASPIRIN E.C. 81 MG (ECOTRIN) TAB PO SCH (08:28)
[2018-09-03] MEDS: VITAMIN D3 1,000 UNITS (CHOLECALCIFEROL) TABLET PO SCH (08:28)
[2018-09-03] MEDS: MELOXICAM 7.5 MG (MOBIC) TABLET PO SCH ×2 (08:29→20:44)
[2018-09-03] MEDS: GABAPENTIN 100 MG (NEURONTIN) CAP PO SCH ×2 (08:29→20:44)
[2018-09-03] MEDS: TRIAMTERENE/HCTZ 75-50 (MAXZIDE,DYAZIDE) TABLET PO SCH (08:29)
[2018-09-03] MEDS: ASCORBIC ACID (VIT C) 500 MG TABLET PO SCH (08:29)
--- NOTE | 2018-09-03 09:04 | Physical Therapy Daily Note ---
PT Daily Note-Current Subjective Pt. up and ready for therapies, asks to cuca her bra and toilet before leaving room Pain Numeric Pain Scale: 2 Location: Left Location Body Site: Knee Pain Description: Ache Mental Status Patient Orientation: Normal For Age Attachments: Other-See Comments (CPM initiated as well as ice pack filled. Pt. comfortable at 0-80 degrees) Transfers Functional [place] Measure 0=Not Assessed/NA 4=Minimal Assistance 1=Total Assistance 5=Supervision or Setup 2=Maximal Assistance 6=Modified [place] 3=Moderate Assistance 7=Complete IndependenceIRFPAI Quality Coding Scale 6 Independent with activity with or without an assistive device 5 Patient requires set up or clean up by helper. Patient completes activity by themselves 4 Supervision or touching assist (CGA). [place] provide cues , steadying assist 3 The helper provides less than half the effort to complete the activity 2 The helper provides more than half the effort to complete the activity 1 Dependent. The helper does all the effort to complete an activity 7 Patient refused to complete or attempt activity 9 The patient did not perform the activity before the current illness or injury 88 Not attempted due to Medical conditions or safety concerns Transfers (B, C, W/C) (FIM): 6 Scootin Rollin Supine to/from Sit: 6 Sit to/from Stand: 6 Weight Bearing Right Lower Extremity: Right Full Weight Bearing Left Lower Extremity: Left Weight Bearing/Tolerated Gait Training Does the Patient Walk?: Yes Gait (FIM): 5 Distance (FIM): 3=150 ft (250x2,50) Gait Level of Assist: 5 Gait Persons Needed: 1 Gait Assistive Device: FWW equal step length, safe habits, slow gait Exercises Supine Ex: Ankle pumps, Quad Set, Rolling, Glut sets, Heel Slides, Short Arc Quads, Scooting, Straight leg raise Supine Reps: 20 NuStep Minutes: 10 NuStep Workload: 3 Treatments CPM initiated and fitted , set 0-80, AROM 0-68 Assessment Current Status: Excellent Progress PT Short Term Goals Short Term Goals Time Frame: Sep 07, 2018 Transfers (B,C,W/C) (FIM): 5 Gait (FIM): 5 PT [employer]ist Goals [employer]ist Goals PT [facility] Goals Time Frame: Sep 16, 2018 Transfers (B,C,W/C) (FIM): 7 Sit to Lying (QC): 6 Lying-Sitting on Side/Bed(QC): 6 Sit to Stand (QC): 6 Rollin Roll Left to Right (QC): 6 Chair/Sad-ey-Xpuxc Xfer(QC): 6 Car Transfer (QC): 6 Does the Patient Walk: Yes Gait (FIM): 7 Gait distance (FIM): 3=150 ft Walk 10 feet (QC): 6 Walk 10ft-Uneven Surface(QC): 6 Walk 50ft with 2 Turns (QC): 6 Walk 150 ft (QC): 6 Gait Assistive Device: FWW Does the Pt use WC or Scooter?: No Stairs (FIM): 5 # of Steps: 8 (household level) 1 Step (curb) (QC): 6 4 Steps (QC): 6 12 Steps (QC): 88 Picking up an Object (QC): 4 PT Plan Treatment/Plan Treatment Plan: Continue Plan of Care Treatment Plan: Bed Mobility, Education, Functional Activity Mandi, Functional Strength, Group Therapy, Gait, Safety, Therapeutic Exercise, Transfers Treatment Duration: Sep 16, 2018 Frequency: At least 5 of 7 days/Wk (IRF) Estimated Hrs Per Day: 1.5 hours per day Patient and/or Family Agrees t: Yes Safety Risks/Education Patient Education: Gait Training, Transfer Techniques, Correct Positioning, Disease Process, Safety Issues Teaching Recipient: Patient Teaching Methods: Demonstration, Discussion Response to Teaching: Verbalize Understanding, Return Demonstration, Reinforcement Needed Time/GCodes Time In: 800 Time Out: 900 Total Billed Treatment Time: 60 Total Billed Treatment 1,EX30m,FA15m,GT15m G Codes Necessary: BILL Garcia EQUIPMENT STERILIZER Sep 03, 2018 09:03
--- NOTE | 2018-09-03 11:49 | Occupational Ther Daily Note ---
OT Current Status-Daily Note Subjective Pt seen in room, up in recliner, agreeable to OT. No pain mentioned except some discomfort when she initially stands up. Appearance Alert, cooperative Mental Status/Objective Functional [place] Measure 0=Not Assessed/NA 4=Minimal Assistance 1=Total Assistance 5=Supervision or Setup 2=Maximal Assistance 6=Modified [place] 3=Moderate Assistance 7=Complete [place] ADL-Treatment Pt completed sponge bath with setup, washing and drying all parts, She undressed and dressed with setup, SBA when standing. Walked to bathroom SBA and toileted SBA, BSC over toilet. SBA, FWW at sink to brush teeth and comb hair. Functional [place] Measure 0=Not Assessed/NA 4=Minimal Assistance 1=Total Assistance 5=Supervision or Setup 2=Maximal Assistance 6=Modified [place] 3=Moderate Assistance 7=Complete IndependenceIRFPAI Quality Coding Scale 6 Independent with activity with or without an assistive device 5 Patient requires set up or clean up by helper. Patient completes activity by themselves 4 Supervision or touching assist (CGA). [place] provide cues , steadying assist 3 The helper provides less than half the effort to complete the activity 2 The helper provides more than half the effort to complete the activity 1 Dependent. The helper does all the effort to complete an activity 7 Patient refused to complete or attempt activity 9 The patient did not perform the activity before the current illness or injury 88 Not attempted due to Medical conditions or safety concerns Grooming (FIM): 5 (SBA at sink, FWW) Oral Hygiene (QC): 4 (SBA at sink) Bathing (FIM): 5 (Washed and dried all parts, sponge bath. SBA when standing to wash yuliet and bottom) Shower/Bathe Self (QC): 4 (SBA) Upper Body (FIM): 5 (setup) Upper Body Dressing (QC): 5 (setup) Lower Body Dressing (FIM): 5 (setup, SBA when standing to pull pants up. FWW) Lower Body Dressing (QC): 4 (SBA, FWW) On/Off Footwear (QC): 5 (setup) Toileting (FIM): 5 (SBA, BSC over toilet, FWW) Toilet/Commode Transfer (FIM): 5 (SBA, BSC over toilet, FWW) Other Treatment Pt walked with SBA, FWW to gym. Got in/out of chair with arms but with cues for walker placement and hand placement (she tends to push walker out of the way before sitting). Pt completed 12 minutes of bilat UE exercise on arm bike set at 15W resistance, taking one brief recovery break. To strengthen arms to help with transfers and ADLs. Pt walked back to room SBA, FWW and was left up in recliner, all needs met. Education OT Patient Education: Progress toward Goal/Update tx plan, Purpose of tx/ functional activities, Safety issues, Transfer techniques Teaching Recipient: Patient Teaching Methods: Discussion Response to Teaching: Verbalize Understanding, Return Demonstration, Reinforcement Needed OT Short Term Goals Short Term Goals Time Frame: Sep 09, 2018 Grooming(FIM): 5 Bathing(FIM): 5 Upper Body Dressing(FIM): 5 Lower Body Dressing(FIM): 5 Toileting(FIM): 5 Transfers (B,C,W/C) (FIM): 5 Toilet/Commode Transfer(FIM): 5 Shower Transfer(FIM): 5 Additional Short Term Goals: 1-Demonstrate ADL Tasks, 2-Verbalize Understanding , 3-ImproveStrength/Mandi 1=Demonstrate adherence to instructed precautions during ADL tasks. 2=Patient will verbalize/demonstrate understanding of assistive devices/ modifications for ADL. 3=Patient will improve strength/tolerance for activity to enable patient to perform ADL's. OT [facility] Goals [facility] Goals Time Frame: Sep 18, 2018 Eating (FIM): 7 Eating (QC): 7 Groomin Oral Hygiene (QC): 6 Bathing(FIM): 6 Shower/Bathe Self (QC): 6 Upper Body Dressing(FIM): 6 Upper Body Dressing (QC): 6 Lower Body Dressing(FIM): 6 Lower Body Dressing (QC): 6 On/Off Footwear (QC): 6 Toileting(FIM): 7 Toileting Hygiene (QC): 6 Toilet/Commode Transfer(FIM): 6 Toilet/Commode Transfer (QC): 6 Shower Transfer(FIM): 6 Comprehension(FIM): 7 Expression (FIM): 7 Social Interaction(FIM): 7 Problem Solving(FIM): 7 Memory(FIM): 7 Additional Goals: 1-Demonstrate ADL Tasks, 2-Verbalize Understanding, 3- ImproveStrength/Mandi 1=Demonstrate adherence to instructed precautions during ADL tasks. 2=Patient will verbalize/demonstrate understanding of assistive devices/ modifications for ADL. 3=Patient will improve strength/tolerance for activity to enable patient to perform ADL's. OT Education/Plan Problem List/Assessment Pt would benefit from skilled OT to increase her independence to allow her to safely return home to live alone after L TKA Discharge Recommendations Plan/Recommendations: Continue POC Treatment Plan/Plan of Care Patient would benefit from OT for education, treatment and training to promote independence in ADL's, mobility, safety and/or upper extremity function for ADL' s. Plan of Care: ADL Retraining, Functional Mobility, Group Exercise/Act as Ind ( education, exercise, functional mobility, activity tolerance, socialization), UE Neuromus Re-Ed/Coord Treatment Duration: Sep 18, 2018 Frequency: At least 5 of 7 days/Wk (IRF) Estimated Hrs Per Day: 1.5 hours per day Agreement: Yes Rehab Potential: Good Time/GCodes Start Time: 09:00 Stop Time: 10:00 Total Time Billed (hr/min): 60 Billed Treatment Time visit, 35 minutes ADL, 25 minutes exercise TREVON TRUJILLO OT Sep 03, 2018 11:49
--- NOTE | 2018-09-03 14:07 | Physical Therapy Daily Note ---
PT Daily Note-Current Subjective Pt. agrees to Rx, states she has more pain and stiffness in knee this PM, feels she might need to change pants as this pair seem to bind her knee flexion Pain Numeric Pain Scale: 3 Location: Left Location Body Site: Knee Pain Description: Ache Mental Status Patient Orientation: Normal For Age Transfers Functional [place] Measure 0=Not Assessed/NA 4=Minimal Assistance 1=Total Assistance 5=Supervision or Setup 2=Maximal Assistance 6=Modified [place] 3=Moderate Assistance 7=Complete IndependenceIRFPAI Quality Coding Scale 6 Independent with activity with or without an assistive device 5 Patient requires set up or clean up by helper. Patient completes activity by themselves 4 Supervision or touching assist (CGA). [place] provide cues , steadying assist 3 The helper provides less than half the effort to complete the activity 2 The helper provides more than half the effort to complete the activity 1 Dependent. The helper does all the effort to complete an activity 7 Patient refused to complete or attempt activity 9 The patient did not perform the activity before the current illness or injury 88 Not attempted due to Medical conditions or safety concerns all TRFs SBA to mod I Weight Bearing Right Lower Extremity: Right Full Weight Bearing Left Lower Extremity: Left Weight Bearing/Tolerated Gait Training Gait Assistive Device: FWW 150 ft x 2 SBA, slow no LOB, side steps and retro gait in small spaces with good handling Exercises Standing: Hip Abduction, Hamstring curls, Heel/toe raises, Marching, Mini squats Standing Reps: 12 PT Short Term Goals Short Term Goals Time Frame: Sep 07, 2018 Transfers (B,C,W/C) (FIM): 5 Gait (FIM): 5 PT [facility] Goals [facility] Director Goals PT Long-Term Goals Time Frame: Sep 16, 2018 Transfers (B,C,W/C) (FIM): 7 Sit to Lying (QC): 6 Lying-Sitting on Side/Bed(QC): 6 Sit to Stand (QC): 6 Rollin Roll Left to Right (QC): 6 Chair/Aco-wt-Ntwfx Xfer(QC): 6 Car Transfer (QC): 6 Does the Patient Walk: Yes Gait (FIM): 7 Gait distance (FIM): 3=150 ft Walk 10 feet (QC): 6 Walk 10ft-Uneven Surface(QC): 6 Walk 50ft with 2 Turns (QC): 6 Walk 150 ft (QC): 6 Gait Assistive Device: FWW Does the Pt use WC or Scooter?: No Stairs (FIM): 5 # of Steps: 8 (household level) 1 Step (curb) (QC): 6 4 Steps (QC): 6 12 Steps (QC): 88 Picking up an Object (QC): 4 PT Plan Treatment/Plan Treatment Plan: Continue Plan of Care Treatment Plan: Bed Mobility, Education, Functional Activity Mandi, Functional Strength, Group Therapy, Gait, Safety, Therapeutic Exercise, Transfers Treatment Duration: Sep 16, 2018 Frequency: At least 5 of 7 days/Wk (IRF) Estimated Hrs Per Day: 1.5 hours per day Patient and/or Family Agrees t: Yes Safety Risks/Education Patient Education: Gait Training, Transfer Techniques, Issued Written HEP, Correct Positioning, Safety Issues Teaching Recipient: Patient Teaching Methods: Demonstration, Discussion Response to Teaching: Verbalize Understanding, Return Demonstration, Reinforcement Needed Time/GCodes Time In: 1300 Time Out: 1330 Total Billed Treatment Time: 30 Total Billed Treatment 1,GT15m,EX15m G Codes Necessary: BILL Garcia [employer] DEAN Sep 03, 2018 14:07
--- NOTE | 2018-09-03 14:24 | Occupational Ther Daily Note ---
OT Current Status-Daily Note Subjective Pt seen in gym immediately after PT. Agreeable to OT. Requested pain meds from nursing Appearance Alert, cooperative Mental Status/Objective Functional [place] Measure 0=Not Assessed/NA 4=Minimal Assistance 1=Total Assistance 5=Supervision or Setup 2=Maximal Assistance 6=Modified [place] 3=Moderate Assistance 7=Complete [place] ADL-Treatment Functional [place] Measure 0=Not Assessed/NA 4=Minimal Assistance 1=Total Assistance 5=Supervision or Setup 2=Maximal Assistance 6=Modified [place] 3=Moderate Assistance 7=Complete IndependenceIRFPAI Quality Coding Scale 6 Independent with activity with or without an assistive device 5 Patient requires set up or clean up by helper. Patient completes activity by themselves 4 Supervision or touching assist (CGA). [place] provide cues , steadying assist 3 The helper provides less than half the effort to complete the activity 2 The helper provides more than half the effort to complete the activity 1 Dependent. The helper does all the effort to complete an activity 7 Patient refused to complete or attempt activity 9 The patient did not perform the activity before the current illness or injury 88 Not attempted due to Medical conditions or safety concerns Toileting (FIM): 5 Toilet/Commode Transfer (FIM): 5 Other Treatment Pt education on 5 different bilat UE exercises with red (medium resistance) Theraband. Verbal and physical assistance cues to do some of the exercises. She was able to track reps indep and switch sides with occasional cues. P ed on purpose of exercises - to strengthen arms to help with transfers and getting up/ down during ADLs. Pt walked back to room, SBA, FWW and toileted SBA. She took pants off and got into bed, positioning L LE in CPM, with a little help. CPM on , 4 rails up, all needs met. Education OT Patient Education: Home exercise program, Progress toward Goal/Update tx plan, Purpose of tx/functional activities Teaching Recipient: Patient Teaching Methods: Demonstration, Discussion Response to Teaching: Verbalize Understanding, Return Demonstration, Reinforcement Needed OT Short Term Goals Short Term Goals Time Frame: Sep 09, 2018 Grooming(FIM): 5 Bathing(FIM): 5 Upper Body Dressing(FIM): 5 Lower Body Dressing(FIM): 5 Toileting(FIM): 5 Transfers (B,C,W/C) (FIM): 5 Toilet/Commode Transfer(FIM): 5 Shower Transfer(FIM): 5 Additional Short Term Goals: 1-Demonstrate ADL Tasks, 2-Verbalize Understanding , 3-ImproveStrength/Mandi 1=Demonstrate adherence to instructed precautions during ADL tasks. 2=Patient will verbalize/demonstrate understanding of assistive devices/ modifications for ADL. 3=Patient will improve strength/tolerance for activity to enable patient to perform ADL's. OT Microphone Operator Goals Microphone Operator Goals Time Frame: Sep 18, 2018 Eating (FIM): 7 Eating (QC): 7 Groomin Oral Hygiene (QC): 6 Bathing(FIM): 6 Shower/Bathe Self (QC): 6 Upper Body Dressing(FIM): 6 Upper Body Dressing (QC): 6 Lower Body Dressing(FIM): 6 Lower Body Dressing (QC): 6 On/Off Footwear (QC): 6 Toileting(FIM): 7 Toileting Hygiene (QC): 6 Toilet/Commode Transfer(FIM): 6 Toilet/Commode Transfer (QC): 6 Shower Transfer(FIM): 6 Comprehension(FIM): 7 Expression (FIM): 7 Social Interaction(FIM): 7 Problem Solving(FIM): 7 Memory(FIM): 7 Additional Goals: 1-Demonstrate ADL Tasks, 2-Verbalize Understanding, 3- ImproveStrength/Mandi 1=Demonstrate adherence to instructed precautions during ADL tasks. 2=Patient will verbalize/demonstrate understanding of assistive devices/ modifications for ADL. 3=Patient will improve strength/tolerance for activity to enable patient to perform ADL's. OT Education/Plan Problem List/Assessment Pt would benefit from skilled OT to increase her independence to allow her to safely return home to live alone after L TKA Discharge Recommendations Plan/Recommendations: Continue POC Treatment Plan/Plan of Care Patient would benefit from OT for education, treatment and training to promote independence in ADL's, mobility, safety and/or upper extremity function for ADL' s. Plan of Care: ADL Retraining, Functional Mobility, Group Exercise/Act as Ind ( education, exercise, functional mobility, activity tolerance, socialization), UE Neuromus Re-Ed/Coord Treatment Duration: Sep 18, 2018 Frequency: At least 5 of 7 days/Wk (IRF) Estimated Hrs Per Day: 1.5 hours per day Agreement: Yes Rehab Potential: Good Time/GCodes Start Time: 13:30 Stop Time: 14:00 Total Time Billed (hr/min): 30 Billed Treatment Time visit, 15 minutes ADL, 15 minutes functional activity TREVON TRUJILLO OT Sep 03, 2018 14:24
[2018-09-03 16:39] VITALS: BP 107/67
--- NOTE | 2018-09-03 19:56 | Individualized Plan of Care ---
Individualized Plan of Care Rehab Nursing IPOC Order Admission Date Sep 02, 2018 at 12:59 Current Orders Orders Consult Physician (09/02/18 14:14) Admission Order(Inpt,Obs,Sdc) (09/02/18 14:14) Code/Resuscitation (09/02/18 14:14) Initiate Admission Nursing Pro .admission (09/02/18 14:14) Isolation Central Supply Req (09/02/18 14:14) Vital Signs: Routine (Order) 08,16,00 (09/02/18 14:38) Sequential Compression Device 08,20 (09/02/18 14:38) Machine Strap Buckler-Inpt Rehab Con (09/02/18 14:38) Rehab Nursing Orders-Ipoc (09/02/18 14:38) Physical Therapy Rehab Orders (09/02/18 14:38) Occupational Therapy Rehab Ord (09/02/18 14:38) Speech Therapy Rehab Orders (09/02/18 14:38) General/Regular (09/02/18 Dinner) Turn And Reposition Q2HR (09/02/18 14:38) Intake & Output 06,14,22 (09/02/18 14:38) Weekly Weight (Lbs) WEEK (09/02/18 14:38) Gabapentin Capsule/Tablet (Neurontin Cap (09/02/18 21:00) Levothyroxine Tablet (Synthroid Tablet) (09/03/18 06:30) Famotidine Tablet (Pepcid Tablet) (09/02/18 14:45) Triamterene/Hctz 75-50 Tablet (Maxzide 7 (09/03/18 09:00) Ascorbic Acid Tablet (Vitamin C Tablet) (09/03/18 08:00) Cholecalciferol Capsule/Tablet (Vitamin (09/03/18 09:00) Amlodipine Tablet (Norvasc Tablet) (09/02/18 21:00) Aspirin Enteric Coated Tablet (Ecotrin T (09/03/18 09:00) Sertraline Tablet (Zoloft Tablet) (09/02/18 21:00) Tramadol Tablet (Ultram Tablet) (09/02/18 14:45) Hydrocodone/Apap 5/325 Tablet (Lortab 5 (09/02/18 14:45) Meloxicam Tablet (Mobic Tablet) (09/02/18 21:00) Patient Visit (09/02/18 ) Pt Eval Moderate Complexity (09/02/18 ) Patient Visit (09/02/18 ) Patient Visit (09/02/18 ) Exercise Therap, Ea 15 Min (09/02/18 ) Gait Training, Ea 15 Min (09/02/18 ) Patient Visit (09/02/18 ) Speech Sound Lang Comp (09/02/18 ) Ambulate 08,12,20 (09/02/18 15:57) Sequential Compression Device 08,20 (09/02/18 15:57) Dvt/Vte Risk - Notifiy Physici 08 (09/02/18 15:57) Request Ot Evaluate & Treat (09/02/18 15:57) Cbc With Automated Diff (09/03/18 06:00) Comprehensive Metabolic Panel (09/03/18 06:00) Enoxaparin Injection (Lovenox Injection) (09/03/18 08:00) Patient Visit (09/03/18 ) Exercise Therap, Ea 15 Min (09/03/18 ) Gait Training, Ea 15 Min (09/03/18 ) Functional Activities, Ea 15 (09/03/18 ) Rehab Nursing Orders: Ongoing Assess. of Cognitive Status, Ongoing Assess. of Function Status, Disease Management & Educaiton, DVT Prophylaxis, Fall Prevention, Fluid/Electrolyte/Nutrition Mgmt, Infection Prevention, Medication Management & Education, Management of Risks & Complications, Management of Skin Intergrity, Nutrition Management, Pain Management, Patient/Family Support PT IPOC Problem List: Activity Tolerance, Functional Strength, Safety, Balance, Gait, Transfer, Bed Mobility Treatment Plan: Continue Plan of Care Bed Mobility, Education, Functional Activity Mandi, Functional Strength, Group Therapy, Gait, Safety, Therapeutic Exercise, Transfers Treatment Duration: Sep 16, 2018 Frequency: At least 5 of 7 days/Wk (IRF) Estimated Hrs Per Day: 1.5 hours per day OT IPOC Problems: Decreased Activ Tolerance, Decreased UE Strength, Dependent Transfers , Impaired Self-Care Skills OT Treatment, Training and Edu: Yes OT Problems Pt would benefit from skilled OT to increase her independence to allow her to safely return home to live alone after L TKA Plan of Care: ADL Retraining, Functional Mobility, Group Exercise/Act as Ind ( education, exercise, functional mobility, activity tolerance, socialization), UE Neuromus Re-Ed/Coord Treatment Duration: Sep 18, 2018 Frequency: At least 5 of 7 days/Wk (IRF) Estimated Hrs Per Day: 1.[address] IPOC Speech Therapy Treatment Plan: Discontinue ST Treatment Duration: Sep 03, 2018 Frequency: Modified Program (IRF) (0) Estimated Hrs Per Day: Other (0) Machine Strap Buckler/Case Mgmt Machine Strap Buckler/Case Managemen: Discharge Planning, Patient/Family Counseling Dietitian/Delivery Crew Worker Dietitian/Delivery Crew Worker to monitor nutritional status and make changes and/or recommendations as needed and work with speech pathology on dietary upgrades as the occur. 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 Medical Issues: DVT Prophylaxis, Falls Precautions, Infection Protection, Pain Management, Wound Care, Other (List) (as per above) Brief Synthesis of Preadmission Screen, Post-Admission Evaluation, and Therapy Evaluations: 88 yo female who had been Living alone Modified Independent with a walker who underwent a left TKR for painful OA refractory to conservative care at an OSH referred here for Ongoing therapies and care and CPM and pain management Has a supportive family that lives nearby H as per above and hypothyroidism Medical Prognosis: Good Anticipated Length of Stay: 7-10-days Modified Independent to supervision for adls and mobility skills Anticipated d/c Destination: Home with family and [facility] RAMOS MANDUJANO MD Sep 03, 2018 19:56
[2018-09-03] MEDS: amLODIPine 10 MG (NORVASC) TAB PO SCH (20:44)
[2018-09-03] MEDS: SERTRALINE 100 MG (ZOLOFT) TAB PO SCH (20:45)
[2018-09-03 20:50] VITALS: BP 150/71
[2018-09-04 05:19] VITALS: BP 149/70
[2018-09-04] MEDS: LEVOTHYROXINE 50 MCG (LEVOTHROID) TAB PO SCH (06:08)
[2018-09-04] MEDS: MELOXICAM 7.5 MG (MOBIC) TABLET PO SCH ×2 (08:19→20:23)
[2018-09-04] MEDS: ASCORBIC ACID (VIT C) 500 MG TABLET PO SCH (08:19)
[2018-09-04] MEDS: GABAPENTIN 100 MG (NEURONTIN) CAP PO SCH ×2 (08:19→20:24)
[2018-09-04] MEDS: HYDROcodone/APAP 5 MG/325 MG (LORTAB) TAB PO PRN ×2 (08:20→15:04)
[2018-09-04] MEDS: VITAMIN D3 1,000 UNITS (CHOLECALCIFEROL) TABLET PO SCH (08:20)
[2018-09-04] MEDS: ASPIRIN E.C. 81 MG (ECOTRIN) TAB PO SCH (08:20)
[2018-09-04] MEDS: TRIAMTERENE/HCTZ 75-50 (MAXZIDE,DYAZIDE) TABLET PO SCH (08:20)
[2018-09-04] MEDS: ENOXAPARIN 40 MG/0.4 ML (LOVENOX) SYR SC SCH (08:29)
--- NOTE | 2018-09-04 10:03 | Physical Therapy Daily Note ---
PT Daily Note-Current Subjective Pt sitting in recliner upon arrival. Pt agrees to PT and reports feeling better & stronger. Pain Numeric Pain Scale: 4 Location: Right Location Body Site: Knee Pain Description: Ache Mental Status Patient Orientation: Person, Place, Time, Situation Transfers Functional [place] Measure 0=Not Assessed/NA 4=Minimal Assistance 1=Total Assistance 5=Supervision or Setup 2=Maximal Assistance 6=Modified [place] 3=Moderate Assistance 7=Complete IndependenceIRFPAI Quality Coding Scale 6 Independent with activity with or without an assistive device 5 Patient requires set up or clean up by helper. Patient completes activity by themselves 4 Supervision or touching assist (CGA). [place] provide cues , steadying assist 3 The helper provides less than half the effort to complete the activity 2 The helper provides more than half the effort to complete the activity 1 Dependent. The helper does all the effort to complete an activity 7 Patient refused to complete or attempt activity 9 The patient did not perform the activity before the current illness or injury 88 Not attempted due to Medical conditions or safety concerns Scootin Sit to/from Stand: 5 Sit to Stand (QC): 5 Weight Bearing Right Lower Extremity: Right Full Weight Bearing Left Lower Extremity: Left Weight Bearing/Tolerated Gait Training Does the Patient Walk?: Yes Distance (FIM): 3=150 ft Distance: 200' Walk 10 feet (QC): 5 Walk 50 ft with 2 Turns(QC): 5 Walk 150 ft (QC): 5 Gait Level of Assist: 5 Gait Persons Needed: 1 Gait Assistive Device: FWW Pt shuffles L foot when advancing during ambulation. Pt corrects but has to focus on it more than normal gait pattern. Wheelchair Training Does the Pt Use a Wheelchair?: No Exercises Seated Therapy Exercises: Ankle pumps, Long arc quads, Hip flexion, Kicking activity Seated Reps: 20 Treatments Pt takes morning meds and completes dressing before leaving room for tx. Pt uses restroom then ambulates in hallway using FWW at A. Pt completes Seated Ex in Therapy Gym. Pt ambulates in hallway before returning to room to rest. Pt has all needs met and OT to arrive shortly. PT Short Term Goals Short Term Goals Time Frame: Sep 07, 2018 Transfers (B,C,W/C) (FIM): 5 Gait (FIM): 5 PT Mortgage Loan Reviewer Goals Mortgage Loan Reviewer Goals PT Correction Goals Time Frame: Sep 16, 2018 Transfers (B,C,W/C) (FIM): 7 Sit to Lying (QC): 6 Lying-Sitting on Side/Bed(QC): 6 Sit to Stand (QC): 6 Rollin Roll Left to Right (QC): 6 Chair/Aan-up-Xasmh Xfer(QC): 6 Car Transfer (QC): 6 Does the Patient Walk: Yes Gait (FIM): 7 Gait distance (FIM): 3=150 ft Walk 10 feet (QC): 6 Walk 10ft-Uneven Surface(QC): 6 Walk 50ft with 2 Turns (QC): 6 Walk 150 ft (QC): 6 Gait Assistive Device: FWW Does the Pt use WC or Scooter?: No Stairs (FIM): 5 # of Steps: 8 (household level) 1 Step (curb) (QC): 6 4 Steps (QC): 6 12 Steps (QC): 88 Picking up an Object (QC): 4 PT Plan Problem List Problem List: Activity Tolerance, Functional Strength, Gait Treatment/Plan Treatment Plan: Continue Plan of Care Treatment Plan: Bed Mobility, Education, Functional Activity Mandi, Functional Strength, Group Therapy, Gait, Safety, Therapeutic Exercise, Transfers Treatment Duration: Sep 16, 2018 Frequency: At least 5 of 7 days/Wk (IRF) Estimated Hrs Per Day: 1.5 hours per day Patient and/or Family Agrees t: Yes Safety Risks/Education Patient Education: Gait Training, Transfer Techniques, Correct Positioning, Safety Issues Teaching Recipient: Patient Teaching Methods: Discussion Response to Teaching: Verbalize Understanding Time/GCodes Time In: 800 Time Out: 900 Total Billed Treatment Time: 60 Total Billed Treatment 1, GT (15m), EX (15m) & FA x2 (30m) G Codes Necessary: HEATHER Coburn CORN DETASSELER MACHINE OPERATOR Sep 04, 2018 10:03
[2018-09-04] MEDS: SENNA W/DOCUSATE (SENOKOT S) TABLET PO SCH ×2 (11:44→20:24)
--- NOTE | 2018-09-04 11:55 | Occupational Ther Daily Note ---
OT Current Status-Daily Note Subjective Pt seen in room, up in bathroom, agreeable to OT. No pain mentioned. Appearance Alert, cooperative Mental Status/Objective Functional [place] Measure 0=Not Assessed/NA 4=Minimal Assistance 1=Total Assistance 5=Supervision or Setup 2=Maximal Assistance 6=Modified [place] 3=Moderate Assistance 7=Complete [place] ADL-Treatment Pt completed toileting mod I, BSC over toilet, FWW. Agreeable to OT. Pt walked to recliner to choose clothing, skilled cues provided regarding walker and hand placement. She carried clean clothes to bathroom on walker. Pt transferred in/ out of shower with SBA and bathed with setup. Stood to wash bottom with no LOB. Dressed mod I, following modified techniques, FWW. Discussed possible discharge early next week and also talked about energy saving techniques to help her once she goes home, with verbal understanding. Pt left up in recliner, all needs met. Functional [place] Measure 0=Not Assessed/NA 4=Minimal Assistance 1=Total Assistance 5=Supervision or Setup 2=Maximal Assistance 6=Modified [place] 3=Moderate Assistance 7=Complete IndependenceIRFPAI Quality Coding Scale 6 Independent with activity with or without an assistive device 5 Patient requires set up or clean up by helper. Patient completes activity by themselves 4 Supervision or touching assist (CGA). [place] provide cues , steadying assist 3 The helper provides less than half the effort to complete the activity 2 The helper provides more than half the effort to complete the activity 1 Dependent. The helper does all the effort to complete an activity 7 Patient refused to complete or attempt activity 9 The patient did not perform the activity before the current illness or injury 88 Not attempted due to Medical conditions or safety concerns Bathing (FIM): 5 (Setup. Washed and dried all parts, using shower bench, grab bars, hand held shower) Upper Body (FIM): 6 (Retrieved clean clothing. Doffed and donned bra and top in standing, no LOB, no assistance) Lower Body Dressing (FIM): 6 (Retrieved clean clothes on walker. Doffed and donned clothing, FWW for balance, no LOB. Including shoes) Toileting (FIM): 6 (On/off BSC over toilet, managing clothing and hygiene. FWW , grab bar) Toilet/Commode Transfer (FIM): 6 (On/off BSC over toilet, mod I. Grab bar, FWW) Shower Transfer(FIM): 5 (SBA getting in and out of shower stall and on/off shower bench, with grab bars, FWW) Education OT Patient Education: Modified ADL techniques, Progress toward Goal/Update tx plan, Purpose of tx/functional activities, Safety issues, Transfer techniques Teaching Recipient: Patient Teaching Methods: Demonstration, Discussion Response to Teaching: Verbalize Understanding, Return Demonstration OT Short Term Goals Short Term Goals Time Frame: Sep 09, 2018 Grooming(FIM): 5 Bathing(FIM): 5 Upper Body Dressing(FIM): 5 Lower Body Dressing(FIM): 5 Toileting(FIM): 5 Transfers (B,C,W/C) (FIM): 5 Toilet/Commode Transfer(FIM): 5 Shower Transfer(FIM): 5 Additional Short Term Goals: 1-Demonstrate ADL Tasks, 2-Verbalize Understanding , 3-ImproveStrength/Mandi 1=Demonstrate adherence to instructed precautions during ADL tasks. 2=Patient will verbalize/demonstrate understanding of assistive devices/ modifications for ADL. 3=Patient will improve strength/tolerance for activity to enable patient to perform ADL's. OT Synthetic Chemist Goals Detention Goals Time Frame: Sep 18, 2018 Eating (FIM): 7 Eating (QC): 7 Groomin Oral Hygiene (QC): 6 Bathing(FIM): 6 Shower/Bathe Self (QC): 6 Upper Body Dressing(FIM): 6 Upper Body Dressing (QC): 6 Lower Body Dressing(FIM): 6 Lower Body Dressing (QC): 6 On/Off Footwear (QC): 6 Toileting(FIM): 7 Toileting Hygiene (QC): 6 Toilet/Commode Transfer(FIM): 6 Toilet/Commode Transfer (QC): 6 Shower Transfer(FIM): 6 Comprehension(FIM): 7 Expression (FIM): 7 Social Interaction(FIM): 7 Problem Solving(FIM): 7 Memory(FIM): 7 Additional Goals: 1-Demonstrate ADL Tasks, 2-Verbalize Understanding, 3- ImproveStrength/Mandi 1=Demonstrate adherence to instructed precautions during ADL tasks. 2=Patient will verbalize/demonstrate understanding of assistive devices/ modifications for ADL. 3=Patient will improve strength/tolerance for activity to enable patient to perform ADL's. OT Education/Plan Problem List/Assessment Pt would benefit from skilled OT to increase her independence to allow her to safely return home to live alone after L TKA Discharge Recommendations Plan/Recommendations: Continue POC Treatment Plan/Plan of Care Patient would benefit from OT for education, treatment and training to promote independence in ADL's, mobility, safety and/or upper extremity function for ADL' s. Plan of Care: ADL Retraining, Functional Mobility, Group Exercise/Act as Ind ( education, exercise, functional mobility, activity tolerance, socialization), UE Neuromus Re-Ed/Coord Treatment Duration: Sep 18, 2018 Frequency: At least 5 of 7 days/Wk (IRF) Estimated Hrs Per Day: 1.5 hours per day Agreement: Yes Rehab Potential: Good Time/GCodes Start Time: 09:00 Stop Time: 10:00 Total Time Billed (hr/min): 60 Billed Treatment Time visit, 60 minutes ADL TREVON TRUJILLO OT Sep 04, 2018 11:55
--- NOTE | 2018-09-04 12:46 | PM & R (SOAP) Progress Note ---
Subjective This was a face to face visit with the patient. Date Seen by Provider: Sep 04, 2018 Time Seen by Provider: 08:00 Subjective/Events-last exam Patient was seen in her room this AM Patient SBA for transfers C/O hard stools Discussed with RN See orders Date Identified: Sep 04, 2018 Time Identified: 08:00 Medication Intervention: Senokot S as per above Objective Physician Exam Last Set of Vital Signs Vital Signs Date Time Temp Pulse Resp B/P (MAP) Pulse Ox O2 Delivery O2 Flow Rate FiO2 09/04/18 08:34 Room Air 09/04/18 05:19 97.8 66 18 149/70 (96) 93 Capillary Refill : Less Than 3 Seconds I&O Intake and Output 09/03/18 23:59 Intake Total 1300 ml Balance 1300 ml Intake Oral 1300 ml # Voids 8 # Bowel Movements 1 General: Alert, Oriented X3, Cooperative, No Acute Distress HEENT: Atraumatic, PERRLA, EOMI, Mucous Memb Moist/[place] Neck: Supple, No JVD Lungs: Clear to Auscultation Heart: Regular Rate Abdomen: Normal Bowel Sounds, Soft, No Tenderness Extremities: Other (trace edema left ankle) Skin: Other (Incision site left knee cleaN AND intact no drainage RT Knee old surgical scar) Neuro: Sensation Intact, Other (Strength 4/5 except left knee with ROM 0- 85degrees) Psych/Mental Status: Mental Status NL Results Lab Data Laboratory Tests 09/03/18 05:16: White Blood Count 8.1, Red Blood Count 3.38L, Hemoglobin 10.0L, Hematocrit 31L, Mean Corpuscular Volume 91, Mean Corpuscular Hemoglobin 30, Mean Corpuscular Hemoglobin Concent 32, Red Cell Distribution Width 16.3H, Platelet Count 221, Mean Platelet Volume 10.2, Neutrophils (%) (Auto) 61, Lymphocytes (%) (Auto) 25 , Monocytes (%) (Auto) 8, Eosinophils (%) (Auto) 6, Basophils (%) (Auto) 0, Neutrophils # (Auto) 4.9, Lymphocytes # (Auto) 2.0, Monocytes # (Auto) 0.7, Eosinophils # (Auto) 0.5H, Basophils # (Auto) 0.0, Sodium Level 140, Potassium Level 3.9, Chloride Level 110H, Carbon Dioxide Level 22, Anion Gap 8, Blood Urea Nitrogen 22H, Creatinine 0.77, Estimat Glomerular Filtration Rate > 60, BUN /Creatinine Ratio 29, Glucose Level 87, Calcium Level 8.6, Corrected Calcium 9.2 , Total Bilirubin 0.6, Aspartate Amino Transf (AST/SGOT) 15, Alanine Aminotransferase (ALT/SGPT) 11, Alkaline Phosphatase 54, Total Protein 5.6L, Albumin 3.3 Assessment/Plan Assessment and Plan OA left knee s/p Left TKR DR Shaw WBAT OA s/p RT TKR remote HTN controlled with med Hypothyroidism on replacement S/P pacemaker DVT Prophylaxis on Lovenox subcut Constipation Senokot ordered Plan Continue PT/OT/CPM Adjust bowel meds as per above reconference next week Co-Morbidities that are continuing to impact the rehab process: (include details ) RAMOS MANDUJANO MD Sep 04, 2018 12:46
--- NOTE | 2018-09-04 15:35 | Occupational Ther Daily Note ---
OT Current Status-Daily Note Subjective Pt seen in gym, after PT, agreeable to OT. No pain mentioned but pt noted that she thought knee was more swollen. Appearance Alert, cooperative Mental Status/Objective Functional [place] Measure 0=Not Assessed/NA 4=Minimal Assistance 1=Total Assistance 5=Supervision or Setup 2=Maximal Assistance 6=Modified [place] 3=Moderate Assistance 7=Complete [place] ADL-Treatment Functional [place] Measure 0=Not Assessed/NA 4=Minimal Assistance 1=Total Assistance 5=Supervision or Setup 2=Maximal Assistance 6=Modified [place] 3=Moderate Assistance 7=Complete IndependenceIRFPAI Quality Coding Scale 6 Independent with activity with or without an assistive device 5 Patient requires set up or clean up by helper. Patient completes activity by themselves 4 Supervision or touching assist (CGA). [place] provide cues , steadying assist 3 The helper provides less than half the effort to complete the activity 2 The helper provides more than half the effort to complete the activity 1 Dependent. The helper does all the effort to complete an activity 7 Patient refused to complete or attempt activity 9 The patient did not perform the activity before the current illness or injury 88 Not attempted due to Medical conditions or safety concerns Other Treatment Pt transferred to chair with arms, with cue to keep walker in front of her. Completed 15 minutes bilat UE ex on arm bike set at 20-25W resistance, to increase strength to help with transfers and ADLs. Took several brief recovery breaks as she worked to pace herself. Walked back to room and toileted mod I, BSC, FWW. Pt got into bed and was positioned in CPM, set at 80 degrees. Pt left up in bed, CPM working, 4 rails up, all needs met. Education OT Patient Education: Progress toward Goal/Update tx plan, Purpose of tx/ functional activities Teaching Recipient: Patient Teaching Methods: Discussion Response to Teaching: Verbalize Understanding OT Short Term Goals Short Term Goals Time Frame: Sep 09, 2018 Grooming(FIM): 5 Bathing(FIM): 5 Upper Body Dressing(FIM): 5 Lower Body Dressing(FIM): 5 Toileting(FIM): 5 Transfers (B,C,W/C) (FIM): 5 Toilet/Commode Transfer(FIM): 5 Shower Transfer(FIM): 5 Additional Short Term Goals: 1-Demonstrate ADL Tasks, 2-Verbalize Understanding , 3-ImproveStrength/Mandi 1=Demonstrate adherence to instructed precautions during ADL tasks. 2=Patient will verbalize/demonstrate understanding of assistive devices/ modifications for ADL. 3=Patient will improve strength/tolerance for activity to enable patient to perform ADL's. OT Penitentiary Goals Chalk Molding Machine Operator Goals Time Frame: Sep 18, 2018 Eating (FIM): 7 Eating (QC): 7 Groomin Oral Hygiene (QC): 6 Bathing(FIM): 6 Shower/Bathe Self (QC): 6 Upper Body Dressing(FIM): 6 Upper Body Dressing (QC): 6 Lower Body Dressing(FIM): 6 Lower Body Dressing (QC): 6 On/Off Footwear (QC): 6 Toileting(FIM): 7 Toileting Hygiene (QC): 6 Toilet/Commode Transfer(FIM): 6 Toilet/Commode Transfer (QC): 6 Shower Transfer(FIM): 6 Comprehension(FIM): 7 Expression (FIM): 7 Social Interaction(FIM): 7 Problem Solving(FIM): 7 Memory(FIM): 7 Additional Goals: 1-Demonstrate ADL Tasks, 2-Verbalize Understanding, 3- ImproveStrength/Mandi 1=Demonstrate adherence to instructed precautions during ADL tasks. 2=Patient will verbalize/demonstrate understanding of assistive devices/ modifications for ADL. 3=Patient will improve strength/tolerance for activity to enable patient to perform ADL's. OT Education/Plan Problem List/Assessment Pt would benefit from skilled OT to increase her independence to allow her to safely return home to live alone after L TKA Discharge Recommendations Plan/Recommendations: Continue POC Treatment Plan/Plan of Care Patient would benefit from OT for education, treatment and training to promote independence in ADL's, mobility, safety and/or upper extremity function for ADL' s. Plan of Care: ADL Retraining, Functional Mobility, Group Exercise/Act as Ind ( education, exercise, functional mobility, activity tolerance, socialization), UE Neuromus Re-Ed/Coord Treatment Duration: Sep 18, 2018 Frequency: At least 5 of 7 days/Wk (IRF) Estimated Hrs Per Day: 1.5 hours per day Agreement: Yes Rehab Potential: Good Time/GCodes Start Time: 14:00 Stop Time: 14:30 Total Time Billed (hr/min): 30 Billed Treatment Time visit, 20 minutes exercise, 10 minutes functional activity TREVON TRUJILLO OT Sep 04, 2018 15:35
--- NOTE | 2018-09-04 15:43 | Physical Therapy Daily Note ---
PT Daily Note-Current Subjective Pt sitting in recliner upon arrival. Pt agrees to PT. Mental Status Patient Orientation: Person, Place, Time, Situation Pt reports no pain although pt feels increased swelling on LLE. No indication of infection upon further examination. PHARMACY TECHNICIAN INFUSION explained RICE protocol to add with swelling. Transfers Functional [place] Measure 0=Not Assessed/NA 4=Minimal Assistance 1=Total Assistance 5=Supervision or Setup 2=Maximal Assistance 6=Modified [place] 3=Moderate Assistance 7=Complete IndependenceIRFPAI Quality Coding Scale 6 Independent with activity with or without an assistive device 5 Patient requires set up or clean up by helper. Patient completes activity by themselves 4 Supervision or touching assist (CGA). [place] provide cues , steadying assist 3 The helper provides less than half the effort to complete the activity 2 The helper provides more than half the effort to complete the activity 1 Dependent. The helper does all the effort to complete an activity 7 Patient refused to complete or attempt activity 9 The patient did not perform the activity before the current illness or injury 88 Not attempted due to Medical conditions or safety concerns Scootin Sit to/from Stand: 5 Sit to Stand (QC): 5 Weight Bearing Right Lower Extremity: Right Full Weight Bearing Left Lower Extremity: Left Weight Bearing/Tolerated Gait Training Does the Patient Walk?: Yes Distance (FIM): 3=150 ft Distance: 150' Walk 10 feet (QC): 5 Walk 50 ft with 2 Turns(QC): 5 Walk 150 ft (QC): 5 Gait Level of Assist: 5 Gait Persons Needed: 1 Gait Assistive Device: FWW Pt's gait improves after VC to focus on picking up L foot to advance instead of shuffling. Wheelchair Training Does the Pt Use a Wheelchair?: No Treatments Pt transfers from recliner, uses restroom and ambulates in hallway using FWW at [facility]. Pt practices proper transfers focusing on hand placement & sequencing. Pt ambulates to Therapy Gym to await OT for tx. Pt has all needs met and resting in chair. Assessment Current Status: Good Progress Pt tolerates tx well. PT Short Term Goals Short Term Goals Time Frame: Sep 07, 2018 Transfers (B,C,W/C) (FIM): 5 Gait (FIM): 5 PT Sizing Machine And Drier Operator Goals Sizing Machine And Drier Operator Goals PT Assisted Goals Time Frame: Sep 16, 2018 Transfers (B,C,W/C) (FIM): 7 Sit to Lying (QC): 6 Lying-Sitting on Side/Bed(QC): 6 Sit to Stand (QC): 6 Rollin Roll Left to Right (QC): 6 Chair/Elf-lu-Ftvqw Xfer(QC): 6 Car Transfer (QC): 6 Does the Patient Walk: Yes Gait (FIM): 7 Gait distance (FIM): 3=150 ft Walk 10 feet (QC): 6 Walk 10ft-Uneven Surface(QC): 6 Walk 50ft with 2 Turns (QC): 6 Walk 150 ft (QC): 6 Gait Assistive Device: FWW Does the Pt use WC or Scooter?: No Stairs (FIM): 5 # of Steps: 8 (household level) 1 Step (curb) (QC): 6 4 Steps (QC): 6 12 Steps (QC): 88 Picking up an Object (QC): 4 PT Plan Problem List Problem List: Activity Tolerance, Functional Strength Treatment/Plan Treatment Plan: Continue Plan of Care Treatment Plan: Bed Mobility, Education, Functional Activity Mandi, Functional Strength, Group Therapy, Gait, Safety, Therapeutic Exercise, Transfers Treatment Duration: Sep 16, 2018 Frequency: At least 5 of 7 days/Wk (IRF) Estimated Hrs Per Day: 1.5 hours per day Patient and/or Family Agrees t: Yes Safety Risks/Education Patient Education: Gait Training, Transfer Techniques, Correct Positioning, Safety Issues Teaching Recipient: Patient Teaching Methods: Discussion Response to Teaching: Verbalize Understanding Time/GCodes Time In: 1330 Time Out: 1400 Total Billed Treatment Time: 30 Total Billed Treatment 1, GT (15m) & FA (15m) G Codes Necessary: HEATHER Coburn PHARMACY TECHNICIAN INFUSION Sep 04, 2018 15:43
[2018-09-04 16:04] VITALS: BP 160/77
[2018-09-04] MEDS: amLODIPine 10 MG (NORVASC) TAB PO SCH (20:24)
[2018-09-04] MEDS: SERTRALINE 100 MG (ZOLOFT) TAB PO SCH (20:24)
[2018-09-05 05:15] VITALS: BP 108/62
[2018-09-05] MEDS: LEVOTHYROXINE 50 MCG (LEVOTHROID) TAB PO SCH (06:40)
[2018-09-05] MEDS: HYDROcodone/APAP 5 MG/325 MG (LORTAB) TAB PO PRN ×2 (08:10→14:25)
[2018-09-05] MEDS: VITAMIN D3 1,000 UNITS (CHOLECALCIFEROL) TABLET PO SCH (08:10)
[2018-09-05] MEDS: TRIAMTERENE/HCTZ 75-50 (MAXZIDE,DYAZIDE) TABLET PO SCH (08:12)
[2018-09-05] MEDS: ASPIRIN E.C. 81 MG (ECOTRIN) TAB PO SCH (08:13)
[2018-09-05] MEDS: ASCORBIC ACID (VIT C) 500 MG TABLET PO SCH (08:14)
[2018-09-05] MEDS: GABAPENTIN 100 MG (NEURONTIN) CAP PO SCH ×2 (08:14→20:15)
[2018-09-05] MEDS: SENNA W/DOCUSATE (SENOKOT S) TABLET PO SCH ×2 (08:15→20:14)
[2018-09-05] MEDS: ENOXAPARIN 40 MG/0.4 ML (LOVENOX) SYR SC SCH (08:18)
[2018-09-05] MEDS: MELOXICAM 7.5 MG (MOBIC) TABLET PO SCH ×2 (08:24→20:14)
--- NOTE | 2018-09-05 10:44 | Physical Therapy Daily Note ---
PT Daily Note-Current Subjective Agrees to PT. Reports she slept well last night. Transfers Functional [place] Measure 0=Not Assessed/NA 4=Minimal Assistance 1=Total Assistance 5=Supervision or Setup 2=Maximal Assistance 6=Modified [place] 3=Moderate Assistance 7=Complete IndependenceIRFPAI Quality Coding Scale 6 Independent with activity with or without an assistive device 5 Patient requires set up or clean up by helper. Patient completes activity by themselves 4 Supervision or touching assist (CGA). [place] provide cues , steadying assist 3 The helper provides less than half the effort to complete the activity 2 The helper provides more than half the effort to complete the activity 1 Dependent. The helper does all the effort to complete an activity 7 Patient refused to complete or attempt activity 9 The patient did not perform the activity before the current illness or injury 88 Not attempted due to Medical conditions or safety concerns Transfers (B, C, W/C) (FIM): 5 (SBA for safety but no assist needed. ) Supine to/from Sit: 5 Sit to/from Stand: 5 Safe transfers. Weight Bearing Right Lower Extremity: Right Full Weight Bearing Left Lower Extremity: Left Weight Bearing/Tolerated Gait Training Does the Patient Walk?: Yes Gait (FIM): 5 Distance (FIM): 3=150 ft Distance: 150 ft x 2; 25 ft x 1 Gait Assistive Device: FWW slow and steady gait; no noted LOB or safety concerns. Able to ambulate safely in her room and in/about her bathroom. Toilet transfer with SBA as well. SBA to stand at the sink to wash her hands. Exercises NuStep Minutes: 15 (LE strengh and ROM) Assessment Current Status: Good Progress Good functional gains noted. Gait and safety are improveing. PT Short Term Goals Short Term Goals Time Frame: Sep 07, 2018 Transfers (B,C,W/C) (FIM): 5 (met) Gait (FIM): 5 (met) PT Bass Singer Goals Halfway Goals PT Bass Singer Goals Time Frame: Sep 16, 2018 Transfers (B,C,W/C) (FIM): 7 Sit to Lying (QC): 6 Lying-Sitting on Side/Bed(QC): 6 Sit to Stand (QC): 6 Rollin Roll Left to Right (QC): 6 Chair/Aad-yd-Qbsnj Xfer(QC): 6 Car Transfer (QC): 6 Does the Patient Walk: Yes Gait (FIM): 7 Gait distance (FIM): 3=150 ft Walk 10 feet (QC): 6 Walk 10ft-Uneven Surface(QC): 6 Walk 50ft with 2 Turns (QC): 6 Walk 150 ft (QC): 6 Gait Assistive Device: FWW Does the Pt use WC or Scooter?: No Stairs (FIM): 5 # of Steps: 8 (household level) 1 Step (curb) (QC): 6 4 Steps (QC): 6 12 Steps (QC): 88 Picking up an Object (QC): 4 PT Plan Problem List Problem List: Activity Tolerance, Functional Strength, Safety, Balance, Gait, Transfer, Bed Mobility Treatment/Plan Treatment Plan: Continue Plan of Care Treatment Plan: Bed Mobility, Education, Functional Activity Mandi, Functional Strength, Group Therapy, Gait, Safety, Therapeutic Exercise, Transfers Treatment Duration: Sep 16, 2018 Frequency: At least 5 of 7 days/Wk (IRF) Estimated Hrs Per Day: 1.5 hours per day Patient and/or Family Agrees t: Yes Safety Risks/Education Patient Education: Transfer Techniques, Safety Issues Teaching Recipient: Patient Teaching Methods: Discussion Response to Teaching: Verbalize Understanding Discharge Recommendations Therapy D/C Recommendations: Physical Therapy Home Care Time/GCodes Time In: 850 Time Out: 915 Total Billed Treatment Time: 25 Total Billed Treatment visit GT 10 EX 15 JOY NUNEZ PT Sep 05, 2018 10:44
[2018-09-05 17:40] VITALS: BP 158/76
[2018-09-05] MEDS: SERTRALINE 100 MG (ZOLOFT) TAB PO SCH (20:14)
[2018-09-05] MEDS: amLODIPine 10 MG (NORVASC) TAB PO SCH (20:14)
[2018-09-06 05:03] VITALS: BP 136/64
[2018-09-06] MEDS: LEVOTHYROXINE 50 MCG (LEVOTHROID) TAB PO SCH (06:30)
[2018-09-06] MEDS: MELOXICAM 7.5 MG (MOBIC) TABLET PO SCH ×2 (08:27→19:50)
[2018-09-06] MEDS: TRIAMTERENE/HCTZ 75-50 (MAXZIDE,DYAZIDE) TABLET PO SCH (08:28)
[2018-09-06] MEDS: VITAMIN D3 1,000 UNITS (CHOLECALCIFEROL) TABLET PO SCH (08:28)
[2018-09-06] MEDS: ASPIRIN E.C. 81 MG (ECOTRIN) TAB PO SCH (08:29)
[2018-09-06] MEDS: SENNA W/DOCUSATE (SENOKOT S) TABLET PO SCH ×2 (08:30→19:50)
[2018-09-06] MEDS: ASCORBIC ACID (VIT C) 500 MG TABLET PO SCH (08:39)
[2018-09-06] MEDS: GABAPENTIN 100 MG (NEURONTIN) CAP PO SCH ×2 (08:39→19:50)
[2018-09-06] MEDS: ENOXAPARIN 40 MG/0.4 ML (LOVENOX) SYR SC SCH (08:40)
[2018-09-06] MEDS: HYDROcodone/APAP 5 MG/325 MG (LORTAB) TAB PO PRN ×2 (13:57→21:59)
[2018-09-06 17:47] VITALS: BP 116/82
[2018-09-06] MEDS: amLODIPine 10 MG (NORVASC) TAB PO SCH (19:50)
[2018-09-06] MEDS: SERTRALINE 100 MG (ZOLOFT) TAB PO SCH (19:50)
[2018-09-07] MEDS: HYDROcodone/APAP 5 MG/325 MG (LORTAB) TAB PO PRN ×3 (02:36→22:48)
[2018-09-07 05:04] VITALS: BP 126/65
[2018-09-07] MEDS: LEVOTHYROXINE 50 MCG (LEVOTHROID) TAB PO SCH (06:13)
--- NOTE | 2018-09-07 08:35 | PM & R (SOAP) Progress Note ---
Subjective This was a face to face visit with the patient. Date Seen by Provider: Sep 06, 2018 Time Seen by Provider: 19:20 Subjective/Events-last exam Patient was seen in her room this evening Patient SBA for transfers Review of Systems Musculoskeletal: leg pain Objective Physician Exam Last Set of Vital Signs Vital Signs Date Time Temp Pulse Resp B/P (MAP) Pulse Ox O2 Delivery O2 Flow Rate FiO2 09/07/18 05:04 97.6 68 18 126/65 (85) 96 Room Air Capillary Refill : Less Than 3 Seconds I&O Intake and Output 09/07/18 00:00 Intake Total 1370 ml Balance 1370 ml Intake Oral 1370 ml # Voids 7 # Bowel Movements 2 General: Alert, Oriented X3, Cooperative, No Acute Distress HEENT: Atraumatic, PERRLA, EOMI, Mucous Memb Moist/[place] Neck: Supple, No JVD Lungs: Clear to Auscultation Heart: Regular Rate Abdomen: Normal Bowel Sounds, Soft, No Tenderness Extremities: Other (trace edema left ankle) Skin: Other (Incision site left knee cleaN AND intact no drainage RT Knee old surgical scar) Neuro: Sensation Intact, Other (Strength 4/5 except left knee with ROM 0- 85degrees) Psych/Mental Status: Mental Status NL Assessment/Plan Assessment and Plan OA left knee s/p Left TKR DR Shaw WBAT OA s/p RT TKR remote HTN controlled Hypothyroidism on replacement S/P pacemaker DVT prophylaxis on Lovenox subcut Constipation Treated Plan Continue PT/OT/CPM SW texted me today Patient set for discharge Friday09-08-18 will confirm with staff tomorrow This note completed tardy due to password issues with EMR on 09-06-18 Co-Morbidities that are continuing to impact the rehab process: (include details ) RAMOS MANDUJANO MD Sep 07, 2018 08:35
[2018-09-07] MEDS: MELOXICAM 7.5 MG (MOBIC) TABLET PO SCH ×2 (09:13→20:07)
[2018-09-07] MEDS: SENNA W/DOCUSATE (SENOKOT S) TABLET PO SCH ×2 (09:14→20:09)
[2018-09-07] MEDS: TRIAMTERENE/HCTZ 75-50 (MAXZIDE,DYAZIDE) TABLET PO SCH (09:14)
[2018-09-07] MEDS: GABAPENTIN 100 MG (NEURONTIN) CAP PO SCH ×2 (09:14→20:08)
[2018-09-07] MEDS: ENOXAPARIN 40 MG/0.4 ML (LOVENOX) SYR SC SCH (09:15)
[2018-09-07] MEDS: ASCORBIC ACID (VIT C) 500 MG TABLET PO SCH (09:15)
[2018-09-07] MEDS: VITAMIN D3 1,000 UNITS (CHOLECALCIFEROL) TABLET PO SCH (09:15)
[2018-09-07] MEDS: ASPIRIN E.C. 81 MG (ECOTRIN) TAB PO SCH (09:15)
[2018-09-07] MEDS ORDERED: MELO7.5T46 PO (09:56)
--- NOTE | 2018-09-07 10:36 | PM & R (SOAP) Progress Note ---
Subjective This was a face to face visit with the patient. Date Seen by Provider: Sep 07, 2018 Time Seen by Provider: 07:45 Subjective/Events-last exam Patient was seen in her room this AM Patient SBA for transfers Incision healing well.Discussed case with patient and staff patient set for discharge tomorrow to home with family Date Identified: Sep 07, 2018 Time Identified: 07:45 Medication Intervention: Discharge meds reviewed for pending discharge tomorrow Review of Systems Musculoskeletal: leg pain Objective Physician Exam Last Set of Vital Signs Vital Signs Date Time Temp Pulse Resp B/P (MAP) Pulse Ox O2 Delivery O2 Flow Rate FiO2 09/07/18 05:04 97.6 68 18 126/65 (85) 96 Room Air Capillary Refill : Less Than 3 Seconds I&O Intake and Output 09/07/18 00:00 Intake Total 1370 ml Balance 1370 ml Intake Oral 1370 ml # Voids 7 # Bowel Movements 2 General: Alert, Oriented X3, Cooperative, No Acute Distress HEENT: Atraumatic, PERRLA, EOMI, Mucous Memb Moist/[place] Neck: Supple, No JVD Lungs: Clear to Auscultation Heart: Regular Rate Abdomen: Normal Bowel Sounds, Soft, No Tenderness Extremities: Other (trace edema left ankle) Skin: Other (Incision site left knee cleaN AND intact no drainage RT Knee old surgical scar) Neuro: Sensation Intact, Other (Strength 4/5 except left knee with ROM 0- 85degrees) Psych/Mental Status: Mental Status NL Assessment/Plan Assessment and Plan OA left knee s/p left TKR DR Shaw WBAT OA s/p rt TKR HTN controlled Hypothyroidism on replacement s/p pacemaker DVT prophylaxis on Lovenox subcut Constipation treated Plan Continue Pt/OT/CPM Discharge st for tomorrow to home with family see orders Co-Morbidities that are continuing to impact the rehab process: (include details ) RAMOS MANDUJANO MD Sep 07, 2018 10:36
--- NOTE | 2018-09-07 10:59 | Physical Therapy Daily Note ---
PT Daily Note-Current Subjective Pt. states her left knee pain is 5/10 this date and notes that she has some edema. Wants polar pack and in bed with LE elevated after Rx Pain Numeric Pain Scale: 5-Moderate Pain Location: Left Location Body Site: Knee Pain Description: Heavy Mental Status Patient Orientation: Normal For Age Transfers Functional [place] Measure 0=Not Assessed/NA 4=Minimal Assistance 1=Total Assistance 5=Supervision or Setup 2=Maximal Assistance 6=Modified [place] 3=Moderate Assistance 7=Complete IndependenceIRFPAI Quality Coding Scale 6 Independent with activity with or without an assistive device 5 Patient requires set up or clean up by helper. Patient completes activity by themselves 4 Supervision or touching assist (CGA). [place] provide cues , steadying assist 3 The helper provides less than half the effort to complete the activity 2 The helper provides more than half the effort to complete the activity 1 Dependent. The helper does all the effort to complete an activity 7 Patient refused to complete or attempt activity 9 The patient did not perform the activity before the current illness or injury 88 Not attempted due to Medical conditions or safety concerns Transfers (B, C, W/C) (FIM): 6 Scootin Rollin Roll Left to Right (QC): 5 Supine to/from Sit: 6 Sit to/from Stand: 6 Sit to Lying (QC): 5 Sit to Stand (QC): 5 Chair/Dzw-pm-Unege Xfer(QC): 5 Bed to/from Chair: 6 Car Transfer (QC): 5 Weight Bearing Right Lower Extremity: Right Full Weight Bearing Left Lower Extremity: Left Weight Bearing/Tolerated Gait Training Does the Patient Walk?: Yes Gait (FIM): 6 Distance (FIM): 3=150 ft (250x2) Walk 10 feet (QC): 5 Walk 50 ft with 2 Turns(QC): 5 Walk 150 ft (QC): 5 Walking 10ft/uneven surface-QC: 5 Gait Level of Assist: 6 Gait Persons Needed: 0 Gait Assistive Device: FWW charly step , retro and fig 8 all in narrow spaces with no incident Stair Training Stair Training: Handrails/: 2 handrails Stairs (FIM): 6 #of Steps: 12 1 Step (curb) (QC): 5 4 Steps (QC): 5 12 Steps (QC): 5 Stairs: Pattern: Step to Balance Picking up an Object (QC): 5 Exercises Supine Ex: Bridging, Ankle pumps, Quad Set, Rolling, Glut sets, Heel Slides, Short Arc Quads, Scooting, Straight leg raise, Hip abd/add Supine Reps: 15 Seated Therapy Exercises: Ankle pumps, Sit to stand, Long arc quads, Hip flexion Seated Reps: 10 NuStep Minutes: 10 NuStep Workload: 3 Assessment Current Status: Excellent Progress meets goals PT Short Term Goals Short Term Goals Time Frame: Sep 07, 2018 Transfers (B,C,W/C) (FIM): 5 (met) Gait (FIM): 5 (met) PT Reel Fed Printer Goals Senior Care Goals PT Reel Fed Printer Goals Time Frame: Sep 16, 2018 Transfers (B,C,W/C) (FIM): 7 Sit to Lying (QC): 6 Lying-Sitting on Side/Bed(QC): 6 Sit to Stand (QC): 6 Rollin Roll Left to Right (QC): 6 Chair/Iwp-di-Nzmiw Xfer(QC): 6 Car Transfer (QC): 6 Does the Patient Walk: Yes Gait (FIM): 7 Gait distance (FIM): 3=150 ft Walk 10 feet (QC): 6 Walk 10ft-Uneven Surface(QC): 6 Walk 50ft with 2 Turns (QC): 6 Walk 150 ft (QC): 6 Gait Assistive Device: FWW Does the Pt use WC or Scooter?: No Stairs (FIM): 5 # of Steps: 8 (household level) 1 Step (curb) (QC): 6 4 Steps (QC): 6 12 Steps (QC): 88 Picking up an Object (QC): 4 PT Plan Treatment/Plan Treatment Plan: Continue Plan of Care Treatment Plan: Bed Mobility, Education, Functional Activity Mandi, Functional Strength, Group Therapy, Gait, Safety, Therapeutic Exercise, Transfers Treatment Duration: Sep 16, 2018 Frequency: At least 5 of 7 days/Wk (IRF) Estimated Hrs Per Day: 1.5 hours per day Patient and/or Family Agrees t: Yes Safety Risks/Education Patient Education: Gait Training, Transfer Techniques, Steps, Correct Positioning, Disease Process, Safety Issues Teaching Recipient: Patient Teaching Methods: Demonstration, Discussion Response to Teaching: Verbalize Understanding, Return Demonstration Time/GCodes Time In: 1000 Time Out: 1100 Total Billed Treatment Time: 60 Total Billed Treatment 1,EX35m,GT15m,FA10 G Codes Necessary: BILL Garcia DROSOPHERE OPERATOR Sep 07, 2018 10:59
--- NOTE | 2018-09-07 12:00 | Occupational Ther Daily Note ---
OT Current Status-Daily Note Subjective Pt seen in room, up in bed, agreeable to OT. Pain 0/10. Appearance Alert, cooperative Mental Status/Objective Patient Orientation: Person, Place, Time, Situation Functional [place] Measure 0=Not Assessed/NA 4=Minimal Assistance 1=Total Assistance 5=Supervision or Setup 2=Maximal Assistance 6=Modified [place] 3=Moderate Assistance 7=Complete [place] ADL-Treatment She got up out of bed without help. Walked to bathroom, transporting clean clothes on walker.Toileted mod I, BSC over toilet. Stood to undress with no LOB. In/out of shower mod I. Washed and dried all parts mod I. Dressed mod I at EOB, FWW for balancing. Walked to bathroom to brush teeth, comb hair. Returned to recliner. Able to open packages, cut food, feed herself. She tends to walk away from walker at times. Discussed safety with walker and importance of taking a few extra seconds for safety, to prevent falls. Pt left up in recliner , all needs met. Functional [place] Measure 0=Not Assessed/NA 4=Minimal Assistance 1=Total Assistance 5=Supervision or Setup 2=Maximal Assistance 6=Modified [place] 3=Moderate Assistance 7=Complete IndependenceIRFPAI Quality Coding Scale 6 Independent with activity with or without an assistive device 5 Patient requires set up or clean up by helper. Patient completes activity by themselves 4 Supervision or touching assist (CGA). [place] provide cues , steadying assist 3 The helper provides less than half the effort to complete the activity 2 The helper provides more than half the effort to complete the activity 1 Dependent. The helper does all the effort to complete an activity 7 Patient refused to complete or attempt activity 9 The patient did not perform the activity before the current illness or injury 88 Not attempted due to Medical conditions or safety concerns Eating (FIM): 7 (Opened packages, cut up food, fed herself, cot a drink. No dentures) Eating (QC): 6 Grooming (FIM): 6 (Stood at sink to brush teeth, comb hair, FWW for balance. Washed face and hands in shower.) Oral Hygiene (QC): 6 Bathing (FIM): 6 (Turned water on/off and retrieved towel. washed and dried all pats, shower bench, grab bars, hand held shower) Shower/Bathe Self (QC): 6 Upper Body (FIM): 6 (Undressed and dressed, FWW for balance. retrieved clean clothes on walker.) Upper Body Dressing (QC): 6 Lower Body Dressing (FIM): 6 (Undressed and dressed, FWW for balance. retrieved clean clothes on walker. Doffed and donned shoes herself) Lower Body Dressing (QC): 6 On/Off Footwear (QC): 6 Toileting (FIM): 6 (Mod I to manage clothing and hygiene. BSC over toilet.FWW, grab bar) Toileting Hygiene (QC): 6 Toilet/Commode Transfer (FIM): 6 (On/off BSC over toilet, FWW, grab bar) Toilet Transfer (QC): 6 Shower Transfer(FIM): 6 (Mod I, in/out of shower, on/off bench. FWW, grab bar) Education OT Patient Education: Progress toward Goal/Update tx plan, Purpose of tx/ functional activities, Safety issues, Transfer techniques Teaching Recipient: Patient Teaching Methods: Demonstration, Discussion Response to Teaching: Verbalize Understanding, Return Demonstration, Reinforcement Needed OT Short Term Goals Short Term Goals Time Frame: Sep 09, 2018 Grooming(FIM): 5 Bathing(FIM): 5 Upper Body Dressing(FIM): 5 Lower Body Dressing(FIM): 5 Toileting(FIM): 5 Transfers (B,C,W/C) (FIM): 5 (met) Toilet/Commode Transfer(FIM): 5 Shower Transfer(FIM): 5 Additional Short Term Goals: 1-Demonstrate ADL Tasks, 2-Verbalize Understanding , 3-ImproveStrength/Mandi 1=Demonstrate adherence to instructed precautions during ADL tasks. 2=Patient will verbalize/demonstrate understanding of assistive devices/ modifications for ADL. 3=Patient will improve strength/tolerance for activity to enable patient to perform ADL's. OT Long-Term Goals Long-Term Goals Time Frame: Sep 18, 2018 Eating (FIM): 7 (met 09-07-18) Eating (QC): 6 (met 09-07-18) Groomin (met 09-07-18) Oral Hygiene (QC): 6 (met 09-07-18) Bathing(FIM): 6 (met 09-07-18) Shower/Bathe Self (QC): 6 (met 09-07-18) Upper Body Dressing(FIM): 6 (met 09-07-18) Upper Body Dressing (QC): 6 (met 09-07-18) Lower Body Dressing(FIM): 6 (met 09-07-18) Lower Body Dressing (QC): 6 (met 09-07-18) On/Off Footwear (QC): 6 (met 09-07-18) Toileting(FIM): 7 (not met 09-07-18) Toileting Hygiene (QC): 6 (met 09-07-18) Toilet/Commode Transfer(FIM): 6 (met 09-07-18) Toilet/Commode Transfer (QC): 6 (met 09-07-18) Shower Transfer(FIM): 6 (met 09-07-18) Comprehension(FIM): 7 Expression (FIM): 7 Social Interaction(FIM): 7 Problem Solving(FIM): 7 Memory(FIM): 7 Additional Goals: 1-Demonstrate ADL Tasks, 2-Verbalize Understanding, 3- ImproveStrength/Mandi 1=Demonstrate adherence to instructed precautions during ADL tasks. 2=Patient will verbalize/demonstrate understanding of assistive devices/ modifications for ADL. 3=Patient will improve strength/tolerance for activity to enable patient to perform ADL's. OT Education/Plan Problem List/Assessment Pt would benefit from skilled OT to increase her independence to allow her to safely return home to live alone after L TKA Discharge Recommendations Plan/Recommendations: Continue POC Treatment Plan/Plan of Care Patient would benefit from OT for education, treatment and training to promote independence in ADL's, mobility, safety and/or upper extremity function for ADL' s. Plan of Care: ADL Retraining, Functional Mobility, Group Exercise/Act as Ind ( education, exercise, functional mobility, activity tolerance, socialization), UE Neuromus Re-Ed/Coord Treatment Duration: Sep 18, 2018 Frequency: At least 5 of 7 days/Wk (IRF) Estimated Hrs Per Day: 1.5 hours per day Agreement: Yes Rehab Potential: Good Time/GCodes Start Time: 08:30 Stop Time: 09:30 Total Time Billed (hr/min): 60 Billed Treatment Time visit, 60 minutes ADL TREVON TRUJILLO OT Sep 07, 2018 12:00
--- NOTE | 2018-09-07 14:25 | Therapy Group Daily Note ---
Therapy Daily Group Note Patient Education Topic Home Safety Exercises LE Seated Exercise, UE Exercise Other/Notes Pt. participated in group PT OT session , walking to and from with FWW CGA and safety instructions. Pt. was friendly and shared her name and home town and current situation. Pts. all participated in seated U&L extremity exercises that they lead themselves sharing exercises they have learned during their stay here. Home safety was the education topic utilizing home safety jeopardy as well as bag toss when answering questions. Pts. shared their home experiences and wisdom gained regarding home safety. Pt. to room after Rx, in bed with troy at hand Start Time: 13:00 Stop Time: 14:00 Total Billed Treatment Time: 60 Total Billed Treatment 1,GRP BILL SANDOVAL MANUFACTURING SOFTWARE ENGINEER Sep 07, 2018 14:25
[2018-09-07 15:50] VITALS: BP 135/71
[2018-09-07] MEDS: SERTRALINE 100 MG (ZOLOFT) TAB PO SCH (20:07)
[2018-09-07] MEDS: amLODIPine 10 MG (NORVASC) TAB PO SCH (20:08)
[2018-09-08] MEDS: LEVOTHYROXINE 50 MCG (LEVOTHROID) TAB PO SCH (06:11)
[2018-09-08 06:57] VITALS: BP 114/55
[2018-09-08] MEDS: HYDROcodone/APAP 5 MG/325 MG (LORTAB) TAB PO PRN ×2 (07:19→10:55)
--- NOTE | 2018-09-08 07:55 | PM & R (SOAP) Progress Note ---
Subjective This was a face to face visit with the patient. Date Seen by Provider: Sep 08, 2018 Time Seen by Provider: 07:30 Subjective/Events-last exam Patient was seen in her room this AM Has progressed well [place] for discharge today to home with HHC I Believe.Patient indicates that she will have CPM at home as well will f/u with SW re this Date Identified: Sep 08, 2018 Time Identified: 07:30 Medication Intervention: Discharge meds reviewed Objective Physician Exam Last Set of Vital Signs Vital Signs Date Time Temp Pulse Resp B/P (MAP) Pulse Ox O2 Delivery O2 Flow Rate FiO2 09/08/18 06:57 97.5 71 18 114/55 (74) 96 Room Air Capillary Refill : Less Than 3 Seconds I&O Intake and Output 09/08/18 00:00 Intake Total 1250 ml Balance 1250 ml Intake Oral 1250 ml # Voids 8 # Bowel Movements 4 General: Alert, Oriented X3, Cooperative, No Acute Distress HEENT: Atraumatic, PERRLA, EOMI, Mucous Memb Moist/[place] Neck: Supple, No JVD Lungs: Clear to Auscultation Heart: Regular Rate Abdomen: Normal Bowel Sounds, Soft, No Tenderness Extremities: Other (trace edema left ankle) Skin: Other (Incision site left knee cleaN AND intact no drainage RT Knee old surgical scar) Neuro: Sensation Intact, Other (Strength 4/5 except left knee with ROM 0- 85degrees) Psych/Mental Status: Mental Status NL Assessment/Plan Assessment and Plan Home today with HHC and family F/U with ortho and PCP See orders Co-Morbidities that are continuing to impact the rehab process: (include details ) RAMOS MANDUJANO MD Sep 08, 2018 07:55
[2018-09-08] MEDS: MELOXICAM 7.5 MG (MOBIC) TABLET PO SCH (08:33)
[2018-09-08] MEDS: ASCORBIC ACID (VIT C) 500 MG TABLET PO SCH (08:33)
[2018-09-08] MEDS: VITAMIN D3 1,000 UNITS (CHOLECALCIFEROL) TABLET PO SCH (08:33)
[2018-09-08] MEDS: TRIAMTERENE/HCTZ 75-50 (MAXZIDE,DYAZIDE) TABLET PO SCH (08:33)
[2018-09-08] MEDS: ASPIRIN E.C. 81 MG (ECOTRIN) TAB PO SCH (08:33)
[2018-09-08] MEDS: GABAPENTIN 100 MG (NEURONTIN) CAP PO SCH (08:33)
[2018-09-08] MEDS: ENOXAPARIN 40 MG/0.4 ML (LOVENOX) SYR SC SCH (08:34)
--- NOTE | 2018-09-08 09:18 | Therapy Team Discharge Summary ---
Therapy Discharge Summary Discharge Recommendations Date of Discharge Therapy D/C Recommendations: Physical Therapy Home Care Physical Therapy Patient came to rehab after a left TKA. Upon evaluation patient performed bed mobility with mod I, transfer with min assist, ambulated 50' with a rolling walker with CGA, and went up an down 4 steps using 2 handrails with min assist. Patient has been performing bed mobility and transfer training, balance and endurance training, functional strengthening, gait training, stair training, and education. Patient has made good progress and has met her skilled nursing goals. Now, patient performs bed mobility and transfers with mod I, car transfers mod I, ambulates 250' with a rolling walker with mod I (including 50' with at least 2 turns of 90 degrees and 10' over an uneven surface), and can go up and down 12 steps using 2 handrails with mod I. Patient is discharging from this facility today and will be discharged from PT at this time. Occupational Therapy Decreased Activ Tolerance, Decreased UE Strength, Dependent Transfers, Impaired Self-Care Skills PT Senior Living Goals Bus Monitor Goals PT Bus Monitor Goals Time Frame: Sep 16, 2018 Transfers (B,C,W/C) (FIM): 7 Roll Left to Right (QC): 6 Sit to Lying (QC): 6 Lying-Sitting on Side/Bed(QC): 6 Sit to Stand (QC): 6 Chair/Tze-qh-Vejyh Xfer(QC): 6 Car Transfer (QC): 6 Does the Patient Walk: Yes Gait (FIM): 7 Gait distance (FIM): 3=150 ft Walk 10 feet (QC): 6 Walk 10ft-Uneven Surface(QC): 6 Walk 50ft with 2 Turns (QC): 6 Walk 150 ft (QC): 6 Gait Assistive Device: FWW Does the Pt use WC or Scooter?: No Stairs (FIM): 5 # of Steps: 8 (household level) 1 Step (curb) (QC): 6 4 Steps (QC): 6 12 Steps (QC): 88 Picking up an Object (QC): 4 OT Senior Living Goals Senior Living Goals Time Frame: Sep 18, 2018 Eating (FIM): 7 (met 09-07-18) Eating (QC): 6 (met 18) Oral Hygiene (QC): 6 (met 09-07-18) Grooming(FIM): 6 (met 09-07-18) Bathing(FIM): 6 (met 09-07-18) Shower/Bathe Self (QC): 6 (met 09-07-18) Upper Body Dressing(FIM): 6 (met 09-07-18) Upper Body Dressing (QC): 6 (met 09-07-18) Lower Body Dressing(FIM): 6 (met 09-07-18) Lower Body Dressing (QC): 6 (met 09-07-18) On/Off Footwear (QC): 6 (met 09-07-18) Toileting(FIM): 7 (not met 09-07-18) Toileting Hygiene (QC): 6 (met 09-07-18) Toilet/Commode Transfer(FIM): 6 (met 09-07-18) Toilet/Commode Transfer (QC): 6 (met 09-07-18) Shower Transfer(FIM): 6 (met 09-07-18) Comprehension(FIM): 7 Expression (FIM): 7 Social Interaction(FIM): 7 Problem Solving(FIM): 7 Memory(FIM): 7 Additional Goals: 1-Demonstrate ADL Tasks, 2-Verbalize Understanding, 3- ImproveStrength/Mandi 1=Demonstrate adherence to instructed precautions during ADL tasks. 2=Patient will verbalize/demonstrate understanding of assistive devices/ modifications for ADL. 3=Patient will improve strength/tolerance for activity to enable patient to perform ADL's. Speech Senior Living Goals Senior Living Goals No goals established. This patient does not require skilled ST at this time. Comprehension: 7 Expression: 7 Social Interaction: 7 Problem Solvin Memory: 7 NISHA SEALS PT Sep 08, 2018 09:18
[2018-09-08] MEDS: SENNA W/DOCUSATE (SENOKOT S) TABLET PO SCH (09:19)
--- NOTE | 2018-09-08 10:12 | D/C HH Face to Face Order ---
D/C Face to Face Orders Instructions for Patient [facility]) -[phone] Patient Instructions/FollowUp: Dr. Shaw Physician to follow Patient: Dr. Shaw Discharge Diet for Home: Regular Diet Patient Data-Allergies,Ht & Wt Patient Allergies: Coded Allergies: Penicillins (Verified Allergy, Intermediate, 09/02/18) Height (Feet): 5 Height (Inches): 0.00 Weight (Pounds): 159 Weight (Ounces): 6.0 Home Health Need/Face to Face Date of Face to Face: Sep 08, 2018 Clinical Findings: Generalized weakness and fatigue, Muscle weakness, Pain with ambulation I have seen Pt [id number]: Yes Discharged To: Home Diagnosis/Conditions: L Tk Patient is Homebound due to: Muscle weakness, Pain w/ambulation Homebound Status Due to the above stated illness, injury or surgical procedure (medical condition or diagnosis) and associated clinical findings, the patient is homebound because of his/her inability to leave home except with aid of a supportive device and/or person AND leaving the home requires a considerable and taxing effort or is medically contraindicated. Pt req the following assistanc: Walker Home Health Nursing Orders Home Health Services Order: Nursing Services, Physical Therapy-Evaluate & Treat PT/Rn to apply CPM Therapy Orders Therapy Orders: OT (must have SN or PT order), Physical Therapy Therapy Specific Orders: Eval assistive deivces, Teach enviro modifications/ safety, Gait training, Increase strength/endurance, Restore ROM Certify Stmt I certify that this patient is under my care and that I, a nurse practitioner or a physician; a dental laboratory assistant working with me, had a face to face encounter that - meets the physician face to face encounter requirements with this patient as dated. I personally scribed for RAMOS MANDUJANO MD ([facility]) on 09/08/18 at 10:12. Electronically submitted by Ro Huang ([id number]). RAMOS MANDUJANO MD Sep 08, 2018 10:12
[2018-09-08 11:00] VITALS: BP 114/55
--- NOTE | 2018-09-08 15:40 | Therapy Team Discharge Summary ---
Therapy Discharge Summary Discharge Recommendations Date of Discharge Sep 08, 2018 at 11:00 Therapy D/C Recommendations: Occupational Therapy Home Care, Physical Therapy Home Care Occupational Therapy Pt was seen for skilled OT to increase her independence in basic self care to allow her to safely return home after totalknee replacement. On admission she needed no help with eating, setup for upper body dressing, SBA for grooming, bathing, lower body dressing, toileting, CGA toilet transfer. By discharge she was indeo with eating and modified indep with all other ADLs. Equipment used included BSC over toilet, grab bars, FWW, shower bench, FWW. Home health OT is recommended. See tx plan for goals met. DC OT. Decreased Activ Tolerance, Decreased UE Strength, Dependent Transfers, Impaired Self-Care Skills PT Assisted Goals Assisted Goals PT Assisted Goals Time Frame: Sep 16, 2018 Transfers (B,C,W/C) (FIM): 7 Roll Left to Right (QC): 6 Sit to Lying (QC): 6 Lying-Sitting on Side/Bed(QC): 6 Sit to Stand (QC): 6 Chair/[id number] Xfer(QC): 6 Car Transfer (QC): 6 Does the Patient Walk: Yes Gait (FIM): 7 Gait distance (FIM): 3=150 ft Walk 10 feet (QC): 6 Walk 10ft-Uneven Surface(QC): 6 Walk 50ft with 2 Turns (QC): 6 Walk 150 ft (QC): 6 Gait Assistive Device: FWW Does the Pt use WC or Scooter?: No Stairs (FIM): 5 # of Steps: 8 (household level) 1 Step (curb) (QC): 6 4 Steps (QC): 6 12 Steps (QC): 88 Picking up an Object (QC): 4 OT Industrial Machinery Mechanic Goals Assisted Goals Time Frame: Sep 18, 2018 Eating (FIM): 7 (met 09-07-18) Eating (QC): 6 (met 09-07-18) Oral Hygiene (QC): 6 (met 09-07-18) Grooming(FIM): 6 (met 09-07-18) Bathing(FIM): 6 (met 09-07-18) Shower/Bathe Self (QC): 6 (met 09-07-18) Upper Body Dressing(FIM): 6 (met 09-07-18) Upper Body Dressing (QC): 6 (met 09-07-18) Lower Body Dressing(FIM): 6 (met 09-07-18) Lower Body Dressing (QC): 6 (met 09-07-18) On/Off Footwear (QC): 6 (met 09-07-18) Toileting(FIM): 7 (not met 09-07-18) Toileting Hygiene (QC): 6 (met 09-07-18) Toilet/Commode Transfer(FIM): 6 (met 09-07-18) Toilet/Commode Transfer (QC): 6 (met 09-07-18) Shower Transfer(FIM): 6 (met 09-07-18) Comprehension(FIM): 7 Expression (FIM): 7 Social Interaction(FIM): 7 Problem Solving(FIM): 7 Memory(FIM): 7 Additional Goals: 1-Demonstrate ADL Tasks, 2-Verbalize Understanding, 3- ImproveStrength/Mandi 1=Demonstrate adherence to instructed precautions during ADL tasks. 2=Patient will verbalize/demonstrate understanding of assistive devices/ modifications for ADL. 3=Patient will improve strength/tolerance for activity to enable patient to perform ADL's. Speech Industrial Machinery Mechanic Goals Assisted Goals No goals established. This patient does not require skilled ST at this time. Comprehension: 7 Expression: 7 Social Interaction: 7 Problem Solvin Memory: 7 TREVON TRUJILLO OT Sep 08, 2018 15:40
== END 2018-09-08 11:00 | disposition home health service (06) | DRG 561 ==
PROVIDERS: ADMIT Physical Medicine & Rehabilitation; ATTEND Physical Medicine & Rehabilitation
DX: Z47.1 Aftercare following joint replacement surgery (principal); Z96.652 Presence of left artificial knee joint; E03.9 Hypothyroidism, unspecified; I10 Essential (primary) hypertension; M81.0 Age-related osteoporosis without current pathological fracture; Z95.0 Presence of cardiac pacemaker
CPT/HCPCS: 36415; 80053; 85025